=== PATIENT | female | born 1930 | race Caucasian/White ===

== ENCOUNTER → 2016-06-12 | Outpatient (CLI) | payer MEDICARE, OTHER ==
[2015-11-17 10:52] VITALS: BP 125/80
[~2016-06-12] MED LIST: ACET325T21 PO; ACET325T9 PO; ALPR0.254 PO; ASPI-482 PO; CALC1TAB75 PO; CHOL10007 PO; DILT120C2 PO; FLUT16SP2 NS; FURO-69 PO; GABA-586 PO; GUAI100L12 PO; HYDR-963 PO; IBUP200T5 PO; IPRA3AMP IH; LORA10TA65 PO; METO50TA2 PO; MULT-246 PO; MULT1TAB52 PO; NAPR250T2 PO; NYST30PO9 TP; POLY17PO5 PO; POTA10CA PO; POTA20TA12 PO; PRED5TAB PO; PROP10DR3 OP; TRAM50TA PO; WARF2TAB PO; WARF3TAB PO; XOPENEX HFA15 GM IH; ZOLP10TA PO; ZOLP5TAB PO; ZOLP6.252 PO
[2016-06-12 08:23] LABS: BASO % 0 % (0-3); EOS # 0.1 x10^3/uL (0.0-0.7); EOS % 0 % (0-3); HEMOGLOBIN 14.5 g/dL (12.0-15.5); LYMPH % 16 % (24-48); MEAN CORPUSCULAR HEMOGLOBIN 30 pg (25-35); MEAN CORPUSCULAR HGB CONC 32 g/dL (31-37); MEAN CORPUSCULAR VOLUME 92 fL (79-100); MONO # 0.8 x10^3/uL (0.0-1.1); MONO % 6 % (0-9); NEUT # 9.9 x10^3uL (1.8-7.7); NEUT % 78 % (31-73); PLATELET COUNT 214 x10^3/uL (140-400); RED BLOOD COUNT 4.89 x10^6/uL (3.50-5.40); RED CELL DISTRIBUTION WIDTH 16.6 % (11.5-14.5); WHITE BLOOD COUNT 12.7 x10^3/uL (4.0-11.0)
[2016-06-12 08:33] LABS: ALBUMIN 3.6 g/dL (3.4-5.0); ALBUMIN/GLOBULIN RATIO 1.2 (1.0-1.7); CALCIUM 8.6 mg/dL (8.5-10.1); GFR 52.7; POTASSIUM 4.8 mmol/L (3.5-5.1); TOTAL BILIRUBIN 0.5 mg/dL (0.2-1.0); TOTAL PROTEIN 6.6 g/dL (6.4-8.2)
== END | disposition home or self-care (01) ==
LOC: SPEC 07:43
PROVIDERS: ATTEND Family Medicine
DX: I10 Essential (primary) hypertension (principal); I48.91 Unspecified atrial fibrillation; J44.9 Chronic obstructive pulmonary disease, unspecified
CPT/HCPCS: 36415; 80053; 85027; 85610

== ENCOUNTER → 2016-06-17 | Outpatient (CLI) | payer MEDICARE, OTHER ==
[2015-11-17 10:52] VITALS: BP 125/80
== END | disposition home or self-care (01) ==
LOC: SPEC 09:56
PROVIDERS: ATTEND Family Medicine
DX: I48.91 Unspecified atrial fibrillation (principal)
CPT/HCPCS: 36415; 85610

== ENCOUNTER → 2016-06-21 | Outpatient (CLI) | payer MEDICARE, OTHER ==
[2015-11-17 10:52] VITALS: BP 125/80
== END | disposition home or self-care (01) ==
LOC: SPEC 07:47
PROVIDERS: ATTEND Family Medicine
DX: I48.91 Unspecified atrial fibrillation (principal); M31.6 Other giant cell arteritis
CPT/HCPCS: 36415; 85610; 85651

== ENCOUNTER → 2016-06-28 | Outpatient (CLI) | payer MEDICARE, OTHER ==
[2015-11-17 10:52] VITALS: BP 125/80
== END | disposition home or self-care (01) ==
LOC: SPEC 11:08
PROVIDERS: ATTEND Family Medicine
DX: Z79.01 Long term (current) use of anticoagulants (principal)
CPT/HCPCS: 36415; 85610

== ENCOUNTER → 2016-07-13 | Outpatient (CLI) | payer MEDICARE, OTHER ==
[2015-11-17 10:52] VITALS: BP 125/80
[2016-07-13 12:57] LABS: BASO % 0 % (0-3); EOS % 0 % (0-3); HEMOGLOBIN 14.1 g/dL (12.0-15.5); LYMPH # 0.8 x10^3/uL (1.0-4.8); LYMPH % 7 % (24-48); MEAN CORPUSCULAR HEMOGLOBIN 30 pg (25-35); MEAN CORPUSCULAR HGB CONC 31 g/dL (31-37); MEAN CORPUSCULAR VOLUME 94 fL (79-100); MONO # 0.3 x10^3/uL (0.0-1.1); MONO % 2 % (0-9); NEUT # 10.3 x10^3uL (1.8-7.7); NEUT % 91 % (31-73); PLATELET COUNT 217 x10^3/uL (140-400); RED BLOOD COUNT 4.79 x10^6/uL (3.50-5.40); RED CELL DISTRIBUTION WIDTH 17.2 % (11.5-14.5); WHITE BLOOD COUNT 11.4 x10^3/uL (4.0-11.0)
[2016-07-13 13:07] LABS: ALBUMIN 3.5 g/dL (3.4-5.0); ALBUMIN/GLOBULIN RATIO 1.2 (1.0-1.7); CALCIUM 8.6 mg/dL (8.5-10.1); POTASSIUM 4.9 mmol/L (3.5-5.1); TOTAL BILIRUBIN 0.6 mg/dL (0.2-1.0); TOTAL PROTEIN 6.4 g/dL (6.4-8.2)
[2016-07-13 13:10] LABS: GFR 52.7
[2016-07-13 13:55] LABS: SEDIMENTATION RATE 3 (0-25)
== END | disposition home or self-care (01) ==
LOC: SPEC 12:04
PROVIDERS: ATTEND Family Medicine
DX: I11.0 Hypertensive heart disease with heart failure (principal); I50.9 Heart failure, unspecified; N30.10 Interstitial cystitis (chronic) without hematuria
CPT/HCPCS: 36415; 80053; 85027; 85651

== ENCOUNTER → 2016-08-20 | Outpatient (CLI) | payer MEDICARE, OTHER ==
[2015-11-17 10:52] VITALS: BP 125/80
[~2016-08-20] MED LIST changes: +CHOL100014 PO; -CHOL10007 PO; +IBUP-1227 PO; -IBUP200T5 PO; +NYST15PO9 TP; -NYST30PO9 TP; -WARF3TAB PO; +WARF3TAB54 PO
[2016-08-20 13:42] LABS: BILIRUBIN,URINE NEG (NEG); CLARITY,URINE CLEAR; COLOR,URINE YELLOW; GLUCOSE,URINE NEG (NEG); NITRITE,URINE NEG (NEG); RBC,URINE RARE /HPF (0-2); UROBILINOGEN,URINE 0.2 mg/dL (0.2 mg/dL); WBC,URINE RARE /HPF (0-4)
[2016-08-20 13:43] LABS: BACTERIA,URINE 0 /HPF (0-FEW); HYALINE CASTS, URINE FEW /HPF; SQUAMOUS EPITHELIAL CELL,UR OCC /LPF
== END | disposition home or self-care (01) ==
LOC: SPEC 13:22
PROVIDERS: ATTEND Family Medicine
DX: N39.0 Urinary tract infection, site not specified (principal)
CPT/HCPCS: 81001

== ENCOUNTER → 2016-09-07 | Outpatient (CLI) | payer MEDICARE, OTHER ==
[2015-11-17 10:52] VITALS: BP 125/80
== END | disposition home or self-care (01) ==
LOC: SPEC 10:08
PROVIDERS: ATTEND Nurse Practitioner Family
DX: I48.91 Unspecified atrial fibrillation (principal)
CPT/HCPCS: 36415; 85610

== ENCOUNTER → 2016-09-16 | Outpatient (CLI) | payer MEDICARE, OTHER ==
[2015-11-17 10:52] VITALS: BP 125/80
[2016-09-16 10:31] LABS: CALCIUM 8.2 mg/dL (8.5-10.1); CREATININE 0.9 mg/dL (0.6-1.0); GFR 59.5; POTASSIUM 4.5 mmol/L (3.5-5.1)
== END | disposition home or self-care (01) ==
LOC: SPEC 10:05
PROVIDERS: ATTEND Internal Medicine
DX: I50.9 Heart failure, unspecified (principal)
CPT/HCPCS: 36415; 80048; 83880

== ENCOUNTER 2016-09-20 12:48 | Inpatient (IN) | payer MEDICARE, OTHER ==
[~2016-09-20] VITALS: Ht 165.1 cm; Wt 105.2 kg
[2016-09-20 13:34] VITALS: BP 115/75
[2016-09-20] MEDS ORDERED: FUROSEMIDE 40 MG/4 ML VIAL IVP ONE (13:45)
[2016-09-20 14:41] LABS: BASO % 0 % (0-3); EOS % 1 % (0-3); HEMATOCRIT 33.4 % (36.0-47.0); HEMOGLOBIN 10.7 g/dL (12.0-15.5); LYMPH # 0.7 x10^3/uL (1.0-4.8); LYMPH % 10 % (24-48); MEAN CORPUSCULAR HEMOGLOBIN 29 pg (25-35); MEAN CORPUSCULAR HGB CONC 32 g/dL (31-37); MEAN CORPUSCULAR VOLUME 90 fL (79-100); MONO # 0.6 x10^3/uL (0.0-1.1); MONO % 9 % (0-9); NEUT # 5.6 x10^3uL (1.8-7.7); NEUT % 80 % (31-73); PLATELET COUNT 178 x10^3/uL (140-400); RED CELL DISTRIBUTION WIDTH 14.6 % (11.5-14.5)
--- NOTE | 2016-09-20 14:44 | RAD ---
Indication: Congestive heart failure. Time of exam 1430 hours. Correlation is made with prior exam from 11/17/2015. The heart is enlarged. There is no evidence of infiltrate or congestive failure. No significant effusion is seen. There is no pneumothorax identified. Impression: Cardiomegaly. There are no findings to suggest overt congestive failure.
[2016-09-20 14:49] VITALS: BP 114/55
[2016-09-20 14:55] LABS: ALBUMIN 3.3 g/dL (3.4-5.0); ALBUMIN/GLOBULIN RATIO 1.1 (1.0-1.7); CALCIUM 8.4 mg/dL (8.5-10.1); CREATININE 0.9 mg/dL (0.6-1.0); GFR 59.5; MAGNESIUM 2.1 mg/dL (1.8-2.4); POTASSIUM 3.9 mmol/L (3.5-5.1); TOTAL BILIRUBIN 0.6 mg/dL (0.2-1.0); TOTAL PROTEIN 6.4 g/dL (6.4-8.2)
[2016-09-20] MEDS ORDERED: ZOLP10TA4 PO (14:58)
[2016-09-20] MEDS ORDERED: POTA20TA82 PO (14:58)
[2016-09-20] MEDS ORDERED: WARF2.5T71 PO (14:58)
[2016-09-20 15:15] VITALS: BP 114/55
--- NOTE | 2016-09-20 17:27 | EKG ---
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
[2016-09-20] MEDS ORDERED: FURO80TA3 PO (18:08)
[2016-09-20] MEDS ORDERED: PSYL3.4P PO (18:17)
[2016-09-20 18:48] VITALS: BP 105/74
[2016-09-20] MEDS ORDERED: ACETAMINOPHEN 325 MG TABLET PO PRN (19:00)
[2016-09-20] MEDS ORDERED: POLYETHYLENE GLYCOL 3350 17 GM PACKET. PO PRN (19:00)
[2016-09-20] MEDS ORDERED: ZOLPIDEM 5 MG TABLET. PO PRN (20:00)
[2016-09-20] MEDS: METOPROLOL TART IMMED RELEASE 50 MG TABLET PO SCH (20:31)
[2016-09-20] MEDS: ZOLPIDEM 5 MG TABLET. PO SCH (20:32)
[2016-09-20] MEDS: GABAPENTIN 300 MG CAPSULE. PO SCH (20:32)
[2016-09-20] MEDS: HYDROcodone/APAP 10/325 1 TAB TABLET PO PRN (20:34)
[2016-09-20] MEDS: POLYVINYL ALCOHOL 1.4% OPHTH SOLUTION 15ML BOTTLE. OU SCH (21:00)
[2016-09-20 21:58] VITALS: BP 130/71
[2016-09-21 02:16] LABS: CALCIUM 8.2 mg/dL (8.5-10.1); CREATININE 0.7 mg/dL (0.6-1.0); GFR 79.5; POTASSIUM 3.3 mmol/L (3.5-5.1)
[2016-09-21 02:20] LABS: BASO # 0.1 x10^3/uL (0.0-0.2); BASO % 1 % (0-3); EOS # 0.2 x10^3/uL (0.0-0.7); EOS % 3 % (0-3); HEMOGLOBIN 10.9 g/dL (12.0-15.5); LYMPH % 26 % (24-48); MEAN CORPUSCULAR HEMOGLOBIN 29 pg (25-35); MEAN CORPUSCULAR HGB CONC 32 g/dL (31-37); MEAN CORPUSCULAR VOLUME 90 fL (79-100); MONO # 0.9 x10^3/uL (0.0-1.1); MONO % 12 % (0-9); NEUT # 4.4 x10^3uL (1.8-7.7); NEUT % 58 % (31-73); PLATELET COUNT 175 x10^3/uL (140-400); RED BLOOD COUNT 3.78 x10^6/uL (3.50-5.40); RED CELL DISTRIBUTION WIDTH 14.9 % (11.5-14.5); WHITE BLOOD COUNT 7.6 x10^3/uL (4.0-11.0)
[2016-09-21] MEDS: POTASSIUM CHLORIDE 20 MEQ TABLET.ER. PO SCH ×2 (06:13→17:12)
[2016-09-21] MEDS: HYDROcodone/APAP 10/325 1 TAB TABLET PO PRN ×2 (06:25→21:03)
[2016-09-21 06:30] VITALS: BP 134/54
[2016-09-21] MEDS ORDERED: POTASSIUM CHLORIDE 20 MEQ TABLET.ER. PO SCH (08:00)
[2016-09-21] MEDS ORDERED: PSYLLIUM SEED (WITH SUGAR) PACKET. PO PRN (09:00)
[2016-09-21] MEDS ORDERED: ASPIRIN ENTERIC COATED 81 MG TABLET.DR. PO SCH (09:00)
--- NOTE | 2016-09-21 09:47 | PDOC2 ---
[facility] 09/21/16 0947: CONSULT Date of Admission DATE: 09/21/16 TIME: 09:40 Reason for Consult: Acute diastolic heart failure History of Present Illness This is a pleasant 86-year-old female who presented to our office yesterday with chief complaint of progressive dyspnea. She has a past medical history of heart failure with preserved ejection fraction,chronic atrial fibrillation, essential hypertension, and chronic lymphedema. She has been following with Dr. Valerio as an outpatient. Yesterday she had come in for 1 week follow-up to assess her congestive heart failure and reported to be progressively short of breath and more swollen. She was positive for PND and orthopnea for Dr. Valerio asked her to be admitted for IV Lasix. She was given Lasix yesterday and this morning and her breathing is already feeling much better. She has not been able to get up and do much walking at this point because her legs ache whenever she is trying to stand on them. She used to have fitted lymphedema wraps that she has outgrown and not been able to use. She denies any chest pain, pressure or tightness. She denies any palpitations, lightheadedness or syncope. PAST MEDICAL HISTORY: Positive for atrial fibrillation, congestive heart failure, edema. Varicose veins, back pain, sleep apnea. She wears a CPAP. PAST SURGICAL HISTORY: Partial removal of collar bone, surgery 4 times to repair shoulder surgery, procedure breast biopsy, 3 times, back surgery, knee surgery, bilateral. ALLERGIES: LATEX AND PLAVIX. MEDICATIONS: Prednisone 5 mg daily, Lasix 40 mg daily, multivitamin one tablet daily, Zyrtec 10 mg daily, potassium 10 mEq daily, Cardizem 120 daily, aspirin 81 mg daily, Ambien 5 mg at bedtime as needed, metoprolol tartrate 50 mg b.i.d., Neurontin 300 mg at bedtime, warfarin sliding scale. FAMILY HISTORY: Father had chronic obstructive pulmonary disease and at age 87. Brother, family history of cancer, at age 47. 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 She is a former smoker. She has moderate caffeine intake with no alcohol or drug intake. REVIEW OF SYSTEMS: Review of ten organ systems is negative except for as above. PHYSICAL EXAMINATION: GENERAL APPEARANCE: This is a well-developed white female, in no apparent distress. SKIN: Warm and dry. Normal skin turgor. No lesions, no rash. Negative for pallor. HEENT: Conjunctivae are clear. No xanthelasma. HEAD AND NECK: Supple. Positive JVD. No hepatojugular reflex. Negative for carotid bruit. CARDIOVASCULAR: Rhythm and rate were irregular. Normal S1, S2. No S3, S4. Positive systolic murmur. LUNGS: Clear to auscultation. ABDOMEN: Soft, nontender. Positive bowel sounds. EXTREMITIES: + pitting edema. Palpable pedal pulses. MUSCULOSKELETAL: No kyphosis, scoliosis, negative for localized tenderness and stiffness. NEUROLOGIC: Cranial nerves 2-12 are grossly intact.Alert and oriented x 3 PSYCHIATRIC: This is a pleasant patient with a normal affect. EKG shows atrial fibrillation. Chest x-ray shows no obvious vascular congestion. IMPRESSION AND PLAN: 1. Acute decompensation of preserved ejection fraction, congestive heart failure. Continue IV Lasix and follow labs and x-ray. 2. Chronic atrial fibrillation on anticoagulation with an INR goal of 2-3. Check INR Continue metoprolol and diltiazem for rate control. Stop aspirin - she does not need with warfarin 3. Hypertension, well controlled. Continue current medication. 4. Lymphedema. See if we can get her some SCDs - this may help improve her swelling. Current Medications Current Medications Furosemide (Lasix) 80 mg 1X ONCE IVP Last administered on 09/20/16 16:00; Start 09/20/16 at 13:45; Stop 09/20/16 at 13:46; Status DC Acetaminophen (Tylenol) 650 mg PRN Q6HRS PRN PO PAIN; Start 09/20/16 at 19:00 Aspirin (Aspirin Enteric Coated) 81 mg DAILY PO ; Start 09/21/16 at 09:00 Diltiazem HCl (Cardizem 24hr Cd) 120 mg DAILY PO ; Start 09/21/16 at 09:00 Gabapentin (Neurontin) 300 mg HS PO Last administered on 09/20/16 20:32; Start 09/20/16 at 21:00 Acetaminophen/ Hydrocodone Bitart (Lortab 10/325) 2 tab PRN Q8HRS PRN PO PAIN Last administered on 09/21/16 06:25; Start 09/20/16 at 19:00 Metoprolol Tartrate (Lopressor) 50 mg BID PO ; Start 09/20/16 at 21:00 Polyethylene Glycol (miraLAX) 17 gm PRN DAILY PRN PO CONSTIPATION; Start at 19:00 Prednisone (Prednisone) 10 mg DAILY PO ; Start 09/21/16 at 09:00 Warfarin Sodium (Coumadin) 2.5 mg DAILY16 PO ; Start 09/21/16 at 16:00 Zolpidem Tartrate (Ambien) 5 mg HS PO Last administered on 09/20/16t 20:32; Start 09/20/16 at 21:00 Cetirizine HCl (ZyrTEC) 10 mg DAILY PO ; Start 09/21/16 at 09:00 Multivitamins/ Calcium (Thera-M Plus) 1 tab DAILY PO ; Start 09/21/16 at 09:00 Potassium Chloride (Klor-Con) 20 meq DAILYWBKFT PO ; Start 09/21/16 at 08:00; Stop 09/21/16 at 08:00; Status DC Artificial Tears (Artificial Tears) 1 drop BID OU ; Start 09/20/16 at 21:00 Psyllium Hydrophilic Mucilloid (Metamucil) 1 pkt PRN DAILY PRN PO CONSTIPATION ; Start 09/21/16 at 09:00 Furosemide (Lasix) 80 mg DAILY IVP ; Start 09/21/16 at 09:00 Zolpidem Tartrate (Ambien) 5 mg PRN QHS PRN PO INSOMNIA; Start 09/20/16 at 20: 00 Warfarin Sodium (Coumadin Per Physician) 1 each PRN DAILY PRN MC SEE COMMENTS; Start 09/20/16 at 20:00 Potassium Chloride (Klor-Con) 40 meq BID66 PO Last administered on 09/21/16t 06 :13; Start 09/21/16 at 06:00 Active Scripts Active Reported Metamucil Fiber Singles Packet (Psyllium Husk/Aspartame) 3.4 Gm Powd.pack 3.4 Gm PO PRN DAILY Furosemide 80 Mg Tablet 1 Tab PO DAILY Potassium Chloride 20 Meq Tablet.er 20 Meq PO DAILY Zolpidem Tartrate 10 Mg Tablet 1 Tab PO QHS Warfarin Sodium 2.5 Mg Tablet 2.5 Mg PO DAILY Miralax (Polyethylene Glycol 3350) 17 Gm Powd.pack 1 Packet PO DAILY PRN LAST DOSE GIVEN: DATE: TIME: NEXT DOSE DUE: DATE: TIME: Tylenol (Acetaminophen) 325 Mg Tablet 2 Tab PO PRN Q6HRS PRN MDD 3000mg LAST DOSE GIVEN: DATE: TIME: NEXT DOSE DUE: DATE: TIME: Multivitamins (Multivitamin) 1 Each Tablet 1 Tab PO DAILY LAST DOSE GIVEN: DATE: TIME: NEXT DOSE DUE: DATE: TIME: [place] 10-325 Tablet (Hydrocodone Bit/Acetaminophen) 1 Each Tablet 2 Tab PO Q8HRS PRN LAST DOSE GIVEN: DATE: TIME: NEXT DOSE DUE: DATE: TIME: Systane Ultra 0.4-0.3% Eye Drp (Propylene Glycol/Peg 400) 10 Ml Drops 1 Ml OP BID LAST DOSE GIVEN: DATE: TIME: NEXT DOSE DUE: DATE: TIME: Aspir 81 (Aspirin) 81 Mg Tablet.dr 81 Mg PO DAILY LAST DOSE GIVEN: DATE: TIME: NEXT DOSE DUE: DATE: TIME: Prednisone 5 Mg Tablet 10 Mg PO DAILY LAST DOSE GIVEN: DATE: TIME: NEXT DOSE DUE: DATE: TIME: Metoprolol Tartrate 50 Mg Tablet 50 Mg PO BID LAST DOSE GIVEN: DATE: TIME: NEXT DOSE DUE: DATE: TIME: Claritin (Loratadine) 10 Mg Tab.rapdis 10 Mg PO DAILY LAST DOSE GIVEN: DATE: TIME: NEXT DOSE DUE: DATE: TIME: Gabapentin 300 Mg Capsule 300 Mg PO HS LAST DOSE GIVEN: DATE: TIME: NEXT DOSE DUE: DATE: TIME: Cardizem Cd (Diltiazem Hcl) 120 Mg Cap.er.24h 120 Mg PO DAILY LAST DOSE GIVEN: DATE: TIME: NEXT DOSE DUE: DATE: TIME: Allergies: Coded Allergies: latex (Unverified Allergy, Intermediate, ANAPHYLATIC, 09/29/13) clopidogrel (Unverified Allergy, Mild, Rash, 09/29/13) VITALS Vital Signs Date Time Temp Pulse Resp B/P (MAP) Pulse Ox O2 Delivery O2 Flow Rate FiO2 09/21/16 06:30 98.0 84 20 134/54 (80) 95 Nasal Cannula 2.0 Labs Laboratory Tests Test 09/20/16 14:25 09/20/16 20:15 09/21/16 01:55 White Blood Count 7.0 x10^3/uL (4.0-11.0) 7.6 x10^3/uL (4.0-11.0) Red Blood Count 3.70 x10^6/uL (3.50-5.40) 3.78 x10^6/uL (3.50-5.40) Hemoglobin 10.7 g/dL (12.0-15.5) 10.9 g/dL (12.0-15.5) Hematocrit 33.4 % (36.0-47.0) 34.0 % (36.0-47.0) Mean Corpuscular Volume 90 fL (79-100) 90 fL (79-100) Mean Corpuscular Hemoglobin 29 pg (25-35) 29 pg (25-35) Mean Corpuscular Hemoglobin Concent 32 g/dL (31-37) 32 g/dL (31-37) Red Cell Distribution Width 14.6 % (11.5-14.5) 14.9 % (11.5-14.5) Platelet Count 178 x10^3/uL (140-400) 175 x10^3/uL (140-400) Neutrophils (%) (Auto) 80 % (31-73) 58 % (31-73) Lymphocytes (%) (Auto) 10 % (24-48) 26 % (24-48) Monocytes (%) (Auto) 9 % (0-9) 12 % (0-9) Eosinophils (%) (Auto) 1 % (0-3) 3 % (0-3) Basophils (%) (Auto) 0 % (0-3) 1 % (0-3) Neutrophils # (Auto) 5.6 x10^3uL (1.8-7.7) 4.4 x10^3uL (1.8-7.7) Lymphocytes # (Auto) 0.7 x10^3/uL (1.0-4.8) 2.0 x10^3/uL (1.0-4.8) Monocytes # (Auto) 0.6 x10^3/uL (0.0-1.1) 0.9 x10^3/uL (0.0-1.1) Eosinophils # (Auto) 0.0 x10^3/uL (0.0-0.7) 0.2 x10^3/uL (0.0-0.7) Basophils # (Auto) 0.0 x10^3/uL (0.0-0.2) 0.1 x10^3/uL (0.0-0.2) Sodium Level 143 mmol/L (136-145) 144 mmol/L (136-145) Potassium Level 3.9 mmol/L (3.5-5.1) 3.3 mmol/L (3.5-5.1) Chloride Level 100 mmol/L (98-107) 100 mmol/L (98-107) Carbon Dioxide Level 45 mmol/L (21-32) 43 mmol/L (21-32) Anion Gap -2 (6-14) 1 (6-14) Blood Urea Nitrogen 18 mg/dL (7-20) 18 mg/dL (7-20) Creatinine 0.9 mg/dL (0.6-1.0) 0.7 mg/dL (0.6-1.0) Estimated GFR (Cockcroft-Gault) 59.5 79.5 BUN/Creatinine Ratio 20 (6-20) Glucose Level 160 mg/dL (70-99) 91 mg/dL (70-99) Calcium Level 8.4 mg/dL (8.5-10.1) 8.2 mg/dL (8.5-10.1) Magnesium Level 2.1 mg/dL (1.8-2.4) 2.1 mg/dL (1.8-2.4) Total Bilirubin 0.6 mg/dL (0.2-1.0) Aspartate Amino Transf (AST/SGOT) 14 U/L (15-37) Alanine Aminotransferase (ALT/SGPT) 14 U/L (14-59) Alkaline Phosphatase 57 U/L (46-116) Troponin I Quantitative < 0.017 ng/mL (0-0.055) < 0.017 ng/mL (0-0.055) < 0.017 ng/mL (0-0.055) EW-Iya-A-Type Natriuretic Peptide 2479 pg/mL (0-449) Total Protein 6.4 g/dL (6.4-8.2) Albumin 3.3 g/dL (3.4-5.0) Albumin/Globulin Ratio 1.1 (1.0-1.7) JEREMIE HORTON Jr, MD 09/22/16 0626: CONSULT Allergies: Coded Allergies: latex (Unverified Allergy, Intermediate, ANAPHYLATIC, 09/29/13) clopidogrel (Unverified Allergy, Mild, Rash, 09/29/13) Assessment/Plan The patient was seen by Kiera Campbell APRN and I have reviewed her findings and plan and agree with above. Due to staffing constraints, we did not have an attending available on this day to see the patient. Problems: KIERA CAMPBELL APRN Sep 21, 2016 09:47 JEREMIE HORTON Jr, MD Sep 22, 2016 06:26
[2016-09-21] MEDS: POLYVINYL ALCOHOL 1.4% OPHTH SOLUTION 15ML BOTTLE. OU SCH ×2 (10:01→21:02)
[2016-09-21] MEDS: FUROSEMIDE 100 MG/10 ML VIAL IVP SCH (10:01)
[2016-09-21] MEDS: predniSONE 10 MG TABLET PO SCH (10:04)
[2016-09-21] MEDS: METOPROLOL TART IMMED RELEASE 50 MG TABLET PO SCH ×2 (10:04→21:02)
[2016-09-21] MEDS: MULTIVITAMIN with MINERAL TABLET. PO SCH (10:05)
[2016-09-21] MEDS: CETIRIZINE HCL 10 MG TABLET PO SCH (10:07)
[2016-09-21 10:31] VITALS: BP 109/64
[2016-09-21 14:47] VITALS: BP 138/71
[2016-09-21] MEDS: WARFARIN 2.5 MG TABLET. PO SCH (17:12)
[2016-09-21 20:05] VITALS: BP 131/74
[2016-09-21] MEDS: GABAPENTIN 300 MG CAPSULE. PO SCH (21:03)
[2016-09-21] MEDS: ZOLPIDEM 5 MG TABLET. PO SCH (21:03)
[2016-09-22 00:15] VITALS: BP 122/74
[2016-09-22] MEDS: HYDROcodone/APAP 10/325 1 TAB TABLET PO PRN ×2 (05:37→16:41)
[2016-09-22] MEDS: POTASSIUM CHLORIDE 20 MEQ TABLET.ER. PO SCH ×2 (05:37→16:41)
[2016-09-22 06:16] VITALS: BP 121/62
[2016-09-22] MEDS: predniSONE 10 MG TABLET PO SCH (08:41)
[2016-09-22] MEDS: CETIRIZINE HCL 10 MG TABLET PO SCH (08:41)
[2016-09-22] MEDS: MULTIVITAMIN with MINERAL TABLET. PO SCH (08:41)
[2016-09-22] MEDS: METOPROLOL TART IMMED RELEASE 50 MG TABLET PO SCH ×2 (08:41→21:30)
[2016-09-22] MEDS: FUROSEMIDE 100 MG/10 ML VIAL IVP SCH (08:41)
[2016-09-22 08:42] LABS: BASO % 1 % (0-3); EOS # 0.2 x10^3/uL (0.0-0.7); EOS % 3 % (0-3); HEMATOCRIT 35.2 % (36.0-47.0); HEMOGLOBIN 11.2 g/dL (12.0-15.5); LYMPH # 1.6 x10^3/uL (1.0-4.8); LYMPH % 23 % (24-48); MEAN CORPUSCULAR HEMOGLOBIN 29 pg (25-35); MEAN CORPUSCULAR HGB CONC 32 g/dL (31-37); MEAN CORPUSCULAR VOLUME 89 fL (79-100); MONO # 0.9 x10^3/uL (0.0-1.1); MONO % 14 % (0-9); NEUT # 3.9 x10^3uL (1.8-7.7); NEUT % 59 % (31-73); PLATELET COUNT 187 x10^3/uL (140-400); RED BLOOD COUNT 3.94 x10^6/uL (3.50-5.40); RED CELL DISTRIBUTION WIDTH 14.7 % (11.5-14.5); WHITE BLOOD COUNT 6.6 x10^3/uL (4.0-11.0)
[2016-09-22] MEDS: POLYVINYL ALCOHOL 1.4% OPHTH SOLUTION 15ML BOTTLE. OU SCH ×2 (08:42→21:28)
[2016-09-22 08:50] LABS: ALBUMIN 3.1 g/dL (3.4-5.0); ALBUMIN/GLOBULIN RATIO 0.9 (1.0-1.7); CALCIUM 8.5 mg/dL (8.5-10.1); CREATININE 0.8 mg/dL (0.6-1.0); GFR 68.2; MAGNESIUM 2.1 mg/dL (1.8-2.4); POTASSIUM 4.2 mmol/L (3.5-5.1); TOTAL BILIRUBIN 0.6 mg/dL (0.2-1.0); TOTAL PROTEIN 6.4 g/dL (6.4-8.2)
--- NOTE | 2016-09-22 09:41 | PDOC ---
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 She reports that her breathing is significantly better than on admission, and continues to notice a decrease in her peripheral edema. She denies any chest pain, palpitations, or lightheadedness. She has no other particular complaints this morning. Exam Constitutional: Denies fever or chills Eyes: Denies change in visual acuity HENT: Denies nasal congestion or sore throat Respiratory: Denies cough or shortness of breath Cardiovascular: Denies chest pain or edema GI: Denies abdominal pain, nausea, vomiting, bloody stools or diarrhea : Denies dysuria Musculoskeletal: Denies back pain or joint pain Integument: Denies rash Neurologic: Denies headache, focal weakness or sensory changes Endocrine: Denies polyuria or polydipsia Lymphatic: Denies swollen glands Psychiatric: Denies depression or anxiety OBJECTIVE Vital Signs Vital Signs Date Time Temp Pulse Resp B/P (MAP) Pulse Ox O2 Delivery O2 Flow Rate FiO2 09/22/16 08:42 78 121/62 09/22/16 06:37 95 Nasal Cannula 2.0 09/22/16 06:16 98.3 18 Physical Exam Constitutional: Well developed, well nourished, no acute distress, non-toxic appearance. HENT: Normocephalic, atraumatic, bilateral external ears normal, oropharynx moist, no oral exudates, nose normal. Eyes: GE, EOMI, conjunctiva normal, no discharge. Neck: Normal range of motion, no tenderness, supple, no stridor. Cardiovascular: No carotid bruit. Nor precordial pulsations or heaves. Irregularly irregular, variable S1. No murmurs. No rubs or clicks. Thorax and Lungs: Normal respiration. Normal chest expansion. Normal to percuss. Equal breath sounds. No crackles. No wheeze. Abdomen: Bowel sounds normal, soft, no tenderness, no masses, no pulsatile masses. Skin: Warm, dry, no erythema, no rash. Back: No tenderness, no CVA tenderness. Extremities: Intact distal pulses, +1 pitting edema bilaterally (improving). Neurologic: Alert and oriented X 3, normal motor function, normal sensory function, no focal deficits noted. Psychologic: Affect normal, judgement normal, mood normal. Lab Laboratory Tests Test 09/21/16 11:37 09/22/16 08:26 Glucose (Fingerstick) 112 mg/dL (70-99) H White Blood Count 6.6 x10^3/uL (4.0-11.0) Red Blood Count 3.94 x10^6/uL (3.50-5.40) Hemoglobin 11.2 g/dL (12.0-15.5) L Hematocrit 35.2 % (36.0-47.0) L Mean Corpuscular Volume 89 fL (79-100) Mean Corpuscular Hemoglobin 29 pg (25-35) Mean Corpuscular Hemoglobin Concent 32 g/dL (31-37) Red Cell Distribution Width 14.7 % (11.5-14.5) H Platelet Count 187 x10^3/uL (140-400) Neutrophils (%) (Auto) 59 % (31-73) Lymphocytes (%) (Auto) 23 % (24-48) L Monocytes (%) (Auto) 14 % (0-9) H Eosinophils (%) (Auto) 3 % (0-3) Basophils (%) (Auto) 1 % (0-3) Neutrophils # (Auto) 3.9 x10^3uL (1.8-7.7) Lymphocytes # (Auto) 1.6 x10^3/uL (1.0-4.8) Monocytes # (Auto) 0.9 x10^3/uL (0.0-1.1) Eosinophils # (Auto) 0.2 x10^3/uL (0.0-0.7) Basophils # (Auto) 0.0 x10^3/uL (0.0-0.2) Prothrombin Time 23.5 SEC (9.4-11.4) H Prothrombin Time INR 2.3 (0.9-1.1) H Sodium Level 142 mmol/L (136-145) Potassium Level 4.2 mmol/L (3.5-5.1) Chloride Level 101 mmol/L (98-107) Carbon Dioxide Level 41 mmol/L (21-32) H Anion Gap 0 (6-14) L Blood Urea Nitrogen 17 mg/dL (7-20) Creatinine 0.8 mg/dL (0.6-1.0) Estimated GFR (Cockcroft-Gault) 68.2 BUN/Creatinine Ratio 21 (6-20) H Glucose Level 104 mg/dL (70-99) H Calcium Level 8.5 mg/dL (8.5-10.1) Magnesium Level 2.1 mg/dL (1.8-2.4) Total Bilirubin 0.6 mg/dL (0.2-1.0) Aspartate Amino Transferase (AST) 15 U/L (15-37) Alanine Aminotransferase (ALT) 14 U/L (14-59) Alkaline Phosphatase 54 U/L (46-116) Total Protein 6.4 g/dL (6.4-8.2) Albumin 3.1 g/dL (3.4-5.0) L Albumin/Globulin Ratio 0.9 (1.0-1.7) L MEDICATIONS Medications Current Medications Medications (Trade) Dose Ordered Sig/Nora Start Time Stop Time Status Last Admin Dose Admin Acetaminophen (Tylenol) 650 mg PRN Q6HRS PRN 09/20/16 19:00 Acetaminophen/ Hydrocodone Bitart (Lortab 10/325) 2 tab PRN Q8HRS PRN 09/20/16 19:00 09/22/16 05:37 2 TAB Artificial Tears (Artificial Tears) 1 drop BID 09/20/16 21:00 09/22/16 08:42 1 DROP Aspirin (Aspirin Enteric Coated) 81 mg DAILY 09/21/16 09:00 09/21/16 09:48 DC Cetirizine HCl (ZyrTEC) 10 mg DAILY 09/21/16 09:00 09/22/16 08:41 10 MG Diltiazem HCl (Cardizem 24hr Cd) 120 mg DAILY 09/21/16 09:00 09/22/16 08:42 120 MG Furosemide (Lasix) 80 mg DAILY 09/21/16 09:00 09/22/16 08:41 80 MG Gabapentin (Neurontin) 300 mg HS 09/20/16 21:00 09/21/16 21:03 300 MG Metoprolol Tartrate (Lopressor) 50 mg BID 09/20/16 21:00 09/22/16 08:41 50 MG Multivitamins/ Calcium (Thera-M Plus) 1 tab DAILY 09/21/16 09:00 09/22/16 08:41 1 TAB Polyethylene Glycol (miraLAX) 17 gm PRN DAILY PRN 09/20/16 19:00 Potassium Chloride (Klor-Con) 40 meq BID66 09/21/16 06:00 09/22/16 05:37 40 MEQ Prednisone (Prednisone) 10 mg DAILY 09/21/16 09:00 09/22/16 08:41 10 MG Psyllium Hydrophilic Mucilloid (Metamucil) 1 pkt PRN DAILY PRN 09/21/16 09:00 Warfarin Sodium (Coumadin Per Physician) 1 each PRN DAILY PRN 09/20/16 20:00 Warfarin Sodium (Coumadin) 2.5 mg DAILY16 09/21/16 16:00 09/21/16 17:12 2.5 MG Zolpidem Tartrate (Ambien) 5 mg PRN QHS PRN 09/20/16 20:00 PLAN Plan 1. Acute CHF, diastolic, improving 2. HFpEF 3. Permanent atrial fibrillation, rate controlled and on chronic anticoagulation with warfarin 4. Essential hypertension 5. Lymphedema Sister Jay is doing well this morning. She reports that her breathing continues to improve, and her peripheral edema is down significantly. I note that the patient is down a net of 1.5 L since admission, and her weight is down about 3 pounds. She has not had any recent anginal symptoms, and has remained hemodynamically stable since admission. I agree with continued IV diuresis with Lasix 80 mg for now. This may be transitioned to an oral regimen in the coming days once patient becomes more euvolemic. I agree with continuing the rest of her cardiovascular regimen. Once again, I discussed the importance of salt restriction with the patient. Please continue to follow renal function and electrolytes closely with IV diuresis. We will continue to follow along. Please call with any further questions. NASRIN HERNANDEZ MD Sep 22, 2016 09:41
[2016-09-22 10:27] VITALS: BP 109/63
--- NOTE | 2016-09-22 13:53 | PDOC ---
PROVIDER NOTE PROVIDER NOTE PROVIDER NOTE This is a progress note on Nichole Thompson. Date seen 09/22/2016 Is a 86-year-old pleasant But none with the problem with the following problems #1 acute on chronic diastolic heart failure # 2 HFpEF #3 permanent atrial fibrillation 4 hypertension #5 chronic lymphedema #6 morbid obesity 7 normochromic normocytic anemia #8 impaired mobility line #9 fall risk #10 long-term use of anticoagulants- therapeutic #11 obstructive sleep apnea on CPAP S: Doing much better. Has lost three pounds. Still on IV Lasix. Has been seen by cardiology. Will continue the Lasix IV for another day or so. O:VSS Weight down 3 pounds Alert and in good spirits, LUngs Clear, no JVD, Cy irregular rhytm and rate Extremities_ 1-2 + edema-decreased Labs reviewed-maintaining potassium and mag, INR therapeutic A: see above Plan: continue IV Lasix, daily weights, sodium restriction. USHA LOZANO DO Sep 22, 2016 13:53
[2016-09-22 15:02] VITALS: BP 132/60
[2016-09-22] MEDS: WARFARIN 2.5 MG TABLET. PO SCH (16:41)
[2016-09-22 18:59] VITALS: BP 101/60
[2016-09-22] MEDS: ZOLPIDEM 5 MG TABLET. PO SCH (21:29)
[2016-09-22] MEDS: GABAPENTIN 300 MG CAPSULE. PO SCH (21:30)
[2016-09-22 22:40] VITALS: BP 148/72
[2016-09-23 05:43] VITALS: BP 107/60
[2016-09-23] MEDS: POTASSIUM CHLORIDE 20 MEQ TABLET.ER. PO SCH ×2 (05:43→18:00)
[2016-09-23] MEDS: HYDROcodone/APAP 10/325 1 TAB TABLET PO PRN ×3 (05:48→21:30)
[2016-09-23 06:31] LABS: BASO # 0.1 x10^3/uL (0.0-0.2); BASO % 1 % (0-3); EOS # 0.2 x10^3/uL (0.0-0.7); EOS % 3 % (0-3); HEMATOCRIT 35.2 % (36.0-47.0); HEMOGLOBIN 11.3 g/dL (12.0-15.5); LYMPH % 25 % (24-48); MEAN CORPUSCULAR HEMOGLOBIN 29 pg (25-35); MEAN CORPUSCULAR HGB CONC 32 g/dL (31-37); MEAN CORPUSCULAR VOLUME 90 fL (79-100); MONO # 0.9 x10^3/uL (0.0-1.1); MONO % 12 % (0-9); NEUT # 4.6 x10^3uL (1.8-7.7); NEUT % 60 % (31-73); PLATELET COUNT 187 x10^3/uL (140-400); RED BLOOD COUNT 3.94 x10^6/uL (3.50-5.40); RED CELL DISTRIBUTION WIDTH 14.8 % (11.5-14.5); WHITE BLOOD COUNT 7.7 x10^3/uL (4.0-11.0)
[2016-09-23 06:38] LABS: ALBUMIN 3.1 g/dL (3.4-5.0); CALCIUM 8.5 mg/dL (8.5-10.1); CREATININE 0.7 mg/dL (0.6-1.0); GFR 79.5; MAGNESIUM 2.2 mg/dL (1.8-2.4); POTASSIUM 3.9 mmol/L (3.5-5.1); TOTAL BILIRUBIN 0.5 mg/dL (0.2-1.0); TOTAL PROTEIN 6.3 g/dL (6.4-8.2)
[2016-09-23] MEDS: predniSONE 10 MG TABLET PO SCH (08:20)
[2016-09-23] MEDS: MULTIVITAMIN with MINERAL TABLET. PO SCH (08:20)
[2016-09-23] MEDS: CETIRIZINE HCL 10 MG TABLET PO SCH (08:20)
[2016-09-23] MEDS: METOPROLOL TART IMMED RELEASE 50 MG TABLET PO SCH ×2 (08:21→20:24)
[2016-09-23] MEDS: POLYVINYL ALCOHOL 1.4% OPHTH SOLUTION 15ML BOTTLE. OU SCH ×2 (08:22→20:25)
[2016-09-23] MEDS: FUROSEMIDE 100 MG/10 ML VIAL IVP SCH (08:23)
[2016-09-23 10:45] VITALS: BP 111/66
--- NOTE | 2016-09-23 13:04 | PDOC ---
PROGRESS NOTES Diagnosis ELAINE #1 acute on chronic diastolic heart failure #2 HFpEF 3 pulmonary hypertension #4 permanent atrial fibrillation #5 chronic lymphedema #6 morbid obesity #7 normochromic normocytic anemia #8 impaired mobility #9 for risk #10 long-term use of anticoagulants therapeutic INR Over 11 obstructive sleep apnea on CPAP PLAN We'll switch to by mouth Lasix tomorrow. We will plan for discharge on Sunday back to [facility] after she is seen by the wire weaver cloth. Go back on skilled services. Strongly has been advised by the wire weaver cloth and myself against salt intake. Continue PT and OT. Subjective Doing better today. Has lost 1.5 L of fluid. Her from her weight is not accurate. She is still on IV Lasix. And is feeling much better. She ambulated in the [facility] yesterday. Was a little short of breath coming back. Objective Vital signs noted saturation 97% on 2 L HEENT tongue slightly dry throat clear lungs were clear to auscultation, cardiovascular irregular rhythm and rate Extremities with markedly decreased edema 1+ trace to 1+ now ERIKA hose in place Vital Signs Date Time Temp Pulse Resp B/P (MAP) Pulse Ox O2 Delivery O2 Flow Rate FiO2 09/23/16 10:45 97.7 73 20 111/66 (81) 97 Nasal Cannula 2.0 Intake and Output 09/23/16 07:00 Intake Total 920 ml Output Total 2390 ml Balance -1470 ml Intake Oral 920 ml Output Urine Total 2390 ml Physical Exam See above Review of Relevant I have reviewed the following items diego (where applicable) has been applied. Labs Laboratory Tests Test 09/22/16 08:26 09/23/16 05:51 White Blood Count 6.6 x10^3/uL (4.0-11.0) 7.7 x10^3/uL (4.0-11.0) Red Blood Count 3.94 x10^6/uL (3.50-5.40) 3.94 x10^6/uL (3.50-5.40) Hemoglobin 11.2 g/dL (12.0-15.5) 11.3 g/dL (12.0-15.5) Hematocrit 35.2 % (36.0-47.0) 35.2 % (36.0-47.0) Mean Corpuscular Volume 89 fL (79-100) 90 fL (79-100) Mean Corpuscular Hemoglobin 29 pg (25-35) 29 pg (25-35) Mean Corpuscular Hemoglobin Concent 32 g/dL (31-37) 32 g/dL (31-37) Red Cell Distribution Width 14.7 % (11.5-14.5) 14.8 % (11.5-14.5) Platelet Count 187 x10^3/uL (140-400) 187 x10^3/uL (140-400) Neutrophils (%) (Auto) 59 % (31-73) 60 % (31-73) Lymphocytes (%) (Auto) 23 % (24-48) 25 % (24-48) Monocytes (%) (Auto) 14 % (0-9) 12 % (0-9) Eosinophils (%) (Auto) 3 % (0-3) 3 % (0-3) Basophils (%) (Auto) 1 % (0-3) 1 % (0-3) Neutrophils # (Auto) 3.9 x10^3uL (1.8-7.7) 4.6 x10^3uL (1.8-7.7) Lymphocytes # (Auto) 1.6 x10^3/uL (1.0-4.8) 2.0 x10^3/uL (1.0-4.8) Monocytes # (Auto) 0.9 x10^3/uL (0.0-1.1) 0.9 x10^3/uL (0.0-1.1) Eosinophils # (Auto) 0.2 x10^3/uL (0.0-0.7) 0.2 x10^3/uL (0.0-0.7) Basophils # (Auto) 0.0 x10^3/uL (0.0-0.2) 0.1 x10^3/uL (0.0-0.2) Prothrombin Time 23.5 SEC (9.4-11.4) Prothromb Time International Ratio 2.3 (0.9-1.1) Sodium Level 142 mmol/L (136-145) 144 mmol/L (136-145) Potassium Level 4.2 mmol/L (3.5-5.1) 3.9 mmol/L (3.5-5.1) Chloride Level 101 mmol/L (98-107) 103 mmol/L (98-107) Carbon Dioxide Level 41 mmol/L (21-32) 39 mmol/L (21-32) Anion Gap 0 (6-14) 2 (6-14) Blood Urea Nitrogen 17 mg/dL (7-20) 17 mg/dL (7-20) Creatinine 0.8 mg/dL (0.6-1.0) 0.7 mg/dL (0.6-1.0) Estimated GFR (Cockcroft-Gault) 68.2 79.5 BUN/Creatinine Ratio 21 (6-20) 24 (6-20) Glucose Level 104 mg/dL (70-99) 95 mg/dL (70-99) Calcium Level 8.5 mg/dL (8.5-10.1) 8.5 mg/dL (8.5-10.1) Magnesium Level 2.1 mg/dL (1.8-2.4) 2.2 mg/dL (1.8-2.4) Total Bilirubin 0.6 mg/dL (0.2-1.0) 0.5 mg/dL (0.2-1.0) Aspartate Amino Transf (AST/SGOT) 15 U/L (15-37) 16 U/L (15-37) Alanine Aminotransferase (ALT/SGPT) 14 U/L (14-59) 14 U/L (14-59) Alkaline Phosphatase 54 U/L (46-116) 54 U/L (46-116) Total Protein 6.4 g/dL (6.4-8.2) 6.3 g/dL (6.4-8.2) Albumin 3.1 g/dL (3.4-5.0) 3.1 g/dL (3.4-5.0) Albumin/Globulin Ratio 0.9 (1.0-1.7) 1.0 (1.0-1.7) Medications Current Medications Furosemide (Lasix) 80 mg 1X ONCE IVP Last administered on 09/20/16t 16:00; Start 09/20/16 at 13:45; Stop 09/20/16 at 13:46; Status DC Acetaminophen (Tylenol) 650 mg PRN Q6HRS PRN PO PAIN; Start 09/20/16 at 19:00 Aspirin (Aspirin Enteric Coated) 81 mg DAILY PO ; Start 09/21/16 at 09:00; Stop 09/21/16 at 09:48; Status DC Diltiazem HCl (Cardizem 24hr Cd) 120 mg DAILY PO Last administered on 09/23/16 08:23; Start 09/21/16 at 09:00 Gabapentin (Neurontin) 300 mg HS PO Last administered on 09/22/16 21:30; Start 09/20/16 at 21:00 Acetaminophen/ Hydrocodone Bitart (Lortab 10/325) 2 tab PRN Q8HRS PRN PO PAIN Last administered on 09/23/16 05:48; Start 09/20/16 at 19:00 Metoprolol Tartrate (Lopressor) 50 mg BID PO Last administered on 09/23/16 08: 21; Start 09/20/16 at 21:00 Polyethylene Glycol (miraLAX) 17 gm PRN DAILY PRN PO CONSTIPATION; Start at 19:00 Prednisone (Prednisone) 10 mg DAILY PO Last administered on 09/23/16 08:20; Start 09/21/16 at 09:00 Warfarin Sodium (Coumadin) 2.5 mg DAILY16 PO Last administered on 09/22/16 16: 41; Start 09/21/16 at 16:00 Zolpidem Tartrate (Ambien) 5 mg HS PO Last administered on 09/22/16 21:29; Start 09/20/16 at 21:00 Cetirizine HCl (ZyrTEC) 10 mg DAILY PO Last administered on 09/23/16 08:20; Start 09/21/16 at 09:00 Multivitamins/ Calcium (Thera-M Plus) 1 tab DAILY PO Last administered on 08:20; Start 09/21/16 at 09:00 Potassium Chloride (Klor-Con) 20 meq DAILYWBKFT PO ; Start 09/21/16 at 08:00; Stop 09/21/16 at 08:00; Status DC Artificial Tears (Artificial Tears) 1 drop BID OU Last administered on 08:22; Start 09/20/16 at 21:00 Psyllium Hydrophilic Mucilloid (Metamucil) 1 pkt PRN DAILY PRN PO CONSTIPATION ; Start 09/21/16 at 09:00 Furosemide (Lasix) 80 mg DAILY IVP Last administered on 09/23/16 08:23; Start 09/21/16 at 09:00 Zolpidem Tartrate (Ambien) 5 mg PRN QHS PRN PO INSOMNIA; Start 09/20/16 at 20: 00 Warfarin Sodium (Coumadin Per Physician) 1 each PRN DAILY PRN MC SEE COMMENTS; Start 09/20/16 at 20:00 Potassium Chloride (Klor-Con) 40 meq BID66 PO Last administered on 09/23/16 05: 43; Start 09/21/16 at 06:00 Active Scripts Active Reported Metamucil Fiber Singles Packet (Psyllium Husk/Aspartame) 3.4 Gm Powd.pack 3.4 Gm PO PRN DAILY Furosemide 80 Mg Tablet 1 Tab PO DAILY Potassium Chloride 20 Meq Tablet.er 20 Meq PO DAILY Zolpidem Tartrate 10 Mg Tablet 1 Tab PO QHS Warfarin Sodium 2.5 Mg Tablet 2.5 Mg PO DAILY Miralax (Polyethylene Glycol 3350) 17 Gm Powd.pack 1 Packet PO DAILY PRN LAST DOSE GIVEN: DATE: TIME: NEXT DOSE DUE: DATE: TIME: Tylenol (Acetaminophen) 325 Mg Tablet 2 Tab PO PRN Q6HRS PRN MDD 3000mg LAST DOSE GIVEN: DATE: TIME: NEXT DOSE DUE: DATE: TIME: Multivitamins (Multivitamin) 1 Each Tablet 1 Tab PO DAILY LAST DOSE GIVEN: DATE: TIME: NEXT DOSE DUE: DATE: TIME: [place] 10-325 Tablet (Hydrocodone Bit/Acetaminophen) 1 Each Tablet 2 Tab PO Q8HRS PRN LAST DOSE GIVEN: DATE: TIME: NEXT DOSE DUE: DATE: TIME: Systane Ultra 0.4-0.3% Eye Drp (Propylene Glycol/Peg 400) 10 Ml Drops 1 Ml OP BID LAST DOSE GIVEN: DATE: TIME: NEXT DOSE DUE: DATE: TIME: Aspir 81 (Aspirin) 81 Mg Tablet.dr 81 Mg PO DAILY LAST DOSE GIVEN: DATE: TIME: NEXT DOSE DUE: DATE: TIME: Prednisone 5 Mg Tablet 10 Mg PO DAILY LAST DOSE GIVEN: DATE: TIME: NEXT DOSE DUE: DATE: TIME: Metoprolol Tartrate 50 Mg Tablet 50 Mg PO BID LAST DOSE GIVEN: DATE: TIME: NEXT DOSE DUE: DATE: TIME: Claritin (Loratadine) 10 Mg Tab.rapdis 10 Mg PO DAILY LAST DOSE GIVEN: DATE: TIME: NEXT DOSE DUE: DATE: TIME: Gabapentin 300 Mg Capsule 300 Mg PO HS LAST DOSE GIVEN: DATE: TIME: NEXT DOSE DUE: DATE: TIME: Cardizem Cd (Diltiazem Hcl) 120 Mg Cap.er.24h 120 Mg PO DAILY LAST DOSE GIVEN: DATE: TIME: NEXT DOSE DUE: DATE: TIME: Vitals/I & O Vital Sign - Last 24 Hours 09/22/16 09/22/16 09/22/16 09/22/16 15:02 16:41 17:47 18:59 Temp 97.6 97.5 Pulse 85 82 Resp 20 18 B/P (MAP) 132/60 (84) 101/60 (74) Pulse Ox 96 96 96 96 O2 Delivery Nasal Cannula Nasal Cannula Nasal Cannula Nasal Cannula O2 Flow Rate 2.0 2.0 2.0 2.0 09/22/16 09/22/16 09/22/16 09/23/16 20:00 21:30 22:40 05:43 Temp 98.1 98.0 Pulse 85 74 80 Resp 20 18 B/P (MAP) 111/71 148/72 (97) 107/60 (76) Pulse Ox 96 94 O2 Delivery Nasal Cannula Nasal Cannula Nasal Cannula O2 Flow Rate 2.0 2.0 2.0 09/23/16 09/23/16 09/23/16 09/23/16 05:48 08:00 08:21 08:23 Pulse 60 80 B/P (MAP) 107/65 107/60 Pulse Ox 94 O2 Delivery Nasal Cannula Nasal Cannula O2 Flow Rate 2.0 2.0 09/23/16 10:45 Temp 97.7 Pulse 73 Resp 20 B/P (MAP) 111/66 (81) Pulse Ox 97 O2 Delivery Nasal Cannula O2 Flow Rate 2.0 Intake and Output 09/22/16 09/22/16 09/23/16 15:00 23:00 07:00 Intake Total 600 ml 120 ml 200 ml Output Total 1765 ml 475 ml 150 ml Balance -1165 ml -355 ml 50 ml USHA LOZANO DO Sep 23, 2016 13:04
[2016-09-23 15:18] VITALS: BP 128/71
[2016-09-23] MEDS: WARFARIN 2.5 MG TABLET. PO SCH (16:09)
[2016-09-23 18:05] VITALS: BP 112/66
[2016-09-23] MEDS: GABAPENTIN 300 MG CAPSULE. PO SCH (20:25)
[2016-09-23] MEDS: ZOLPIDEM 5 MG TABLET. PO SCH (20:25)
[2016-09-23 23:57] VITALS: BP 132/87
[2016-09-24 06:12] VITALS: BP 122/68
[2016-09-24] MEDS: HYDROcodone/APAP 10/325 1 TAB TABLET PO PRN (06:22)
[2016-09-24 06:57] LABS: BASO # 0.1 x10^3/uL (0.0-0.2); BASO % 1 % (0-3); EOS # 0.3 x10^3/uL (0.0-0.7); EOS % 3 % (0-3); HEMATOCRIT 38.7 % (36.0-47.0); HEMOGLOBIN 12.1 g/dL (12.0-15.5); LYMPH # 2.4 x10^3/uL (1.0-4.8); LYMPH % 29 % (24-48); MEAN CORPUSCULAR HEMOGLOBIN 28 pg (25-35); MEAN CORPUSCULAR HGB CONC 31 g/dL (31-37); MEAN CORPUSCULAR VOLUME 91 fL (79-100); MONO % 12 % (0-9); NEUT # 4.8 x10^3uL (1.8-7.7); NEUT % 56 % (31-73); PLATELET COUNT 207 x10^3/uL (140-400); RED BLOOD COUNT 4.25 x10^6/uL (3.50-5.40); RED CELL DISTRIBUTION WIDTH 14.6 % (11.5-14.5); WHITE BLOOD COUNT 8.6 x10^3/uL (4.0-11.0)
[2016-09-24 07:06] LABS: CALCIUM 8.7 mg/dL (8.5-10.1); CREATININE 0.8 mg/dL (0.6-1.0); GFR 68.2; MAGNESIUM 2.2 mg/dL (1.8-2.4)
[2016-09-24] MEDS: MULTIVITAMIN with MINERAL TABLET. PO SCH (08:49)
[2016-09-24] MEDS: CETIRIZINE HCL 10 MG TABLET PO SCH (08:49)
[2016-09-24] MEDS: predniSONE 10 MG TABLET PO SCH (08:51)
[2016-09-24] MEDS: METOPROLOL TART IMMED RELEASE 50 MG TABLET PO SCH (08:51)
[2016-09-24] MEDS ORDERED: POTASSIUM CHLORIDE 20 MEQ TABLET.ER. PO SCH (09:00)
[2016-09-24] MEDS ORDERED: FUROSEMIDE 20 MG TABLET PO SCH (09:00)
[2016-09-24] MEDS: POLYVINYL ALCOHOL 1.4% OPHTH SOLUTION 15ML BOTTLE. OU SCH (09:15)
[2016-09-24 11:00] VITALS: BP 124/70
--- NOTE | 2016-09-24 14:01 | PDOC3 ---
Discharge Summary Visit Information Date of Admission: Sep 20, 2016 Date of Discharge: Sep 24, 2016 Final Diagnosis #1 acute on chronic diastolic heart failure #2 fluid overload has now lost 17 pounds #3 HFpEF #4 hypertension #5 chronic lymphedema #6 morbid obesity #7 impaired mobility #8 long-term use of anticoagulants #9 for risk #10 obstructive sleep apnea on CPAP 11 permanent A. fib Problems: Brief Hospital Course Allergies Allergies Coded Allergies Type Severity Reaction Last Updated Verified latex Allergy Intermediate ANAPHYLATIC 09/29/13 No clopidogrel Allergy Mild Rash 09/29/13 No Vital Signs Vital Signs Date Time Temp Pulse Resp B/P (MAP) Pulse Ox O2 Delivery O2 Flow Rate FiO2 09/24/16 08:51 112 122/68 09/24/16 06:22 91 Nasal Cannula 2.0 09/24/16 06:12 97.6 18 Lab Results Laboratory Tests Test 09/23/16 05:51 09/24/16 06:39 White Blood Count 7.7 x10^3/uL (4.0-11.0) 8.6 x10^3/uL (4.0-11.0) Red Blood Count 3.94 x10^6/uL (3.50-5.40) 4.25 x10^6/uL (3.50-5.40) Hemoglobin 11.3 g/dL (12.0-15.5) 12.1 g/dL (12.0-15.5) Hematocrit 35.2 % (36.0-47.0) 38.7 % (36.0-47.0) Mean Corpuscular Volume 90 fL (79-100) 91 fL (79-100) Mean Corpuscular Hemoglobin 29 pg (25-35) 28 pg (25-35) Mean Corpuscular Hemoglobin Concent 32 g/dL (31-37) 31 g/dL (31-37) Red Cell Distribution Width 14.8 % (11.5-14.5) 14.6 % (11.5-14.5) Platelet Count 187 x10^3/uL (140-400) 207 x10^3/uL (140-400) Neutrophils (%) (Auto) 60 % (31-73) 56 % (31-73) Lymphocytes (%) (Auto) 25 % (24-48) 29 % (24-48) Monocytes (%) (Auto) 12 % (0-9) 12 % (0-9) Eosinophils (%) (Auto) 3 % (0-3) 3 % (0-3) Basophils (%) (Auto) 1 % (0-3) 1 % (0-3) Neutrophils # (Auto) 4.6 x10^3uL (1.8-7.7) 4.8 x10^3uL (1.8-7.7) Lymphocytes # (Auto) 2.0 x10^3/uL (1.0-4.8) 2.4 x10^3/uL (1.0-4.8) Monocytes # (Auto) 0.9 x10^3/uL (0.0-1.1) 1.0 x10^3/uL (0.0-1.1) Eosinophils # (Auto) 0.2 x10^3/uL (0.0-0.7) 0.3 x10^3/uL (0.0-0.7) Basophils # (Auto) 0.1 x10^3/uL (0.0-0.2) 0.1 x10^3/uL (0.0-0.2) Sodium Level 144 mmol/L (136-145) 144 mmol/L (136-145) Potassium Level 3.9 mmol/L (3.5-5.1) 4.0 mmol/L (3.5-5.1) Chloride Level 103 mmol/L (98-107) 101 mmol/L (98-107) Carbon Dioxide Level 39 mmol/L (21-32) 40 mmol/L (21-32) Anion Gap 2 (6-14) 3 (6-14) Blood Urea Nitrogen 17 mg/dL (7-20) 18 mg/dL (7-20) Creatinine 0.7 mg/dL (0.6-1.0) 0.8 mg/dL (0.6-1.0) Estimated GFR (Cockcroft-Gault) 79.5 68.2 BUN/Creatinine Ratio 24 (6-20) Glucose Level 95 mg/dL (70-99) 98 mg/dL (70-99) Calcium Level 8.5 mg/dL (8.5-10.1) 8.7 mg/dL (8.5-10.1) Magnesium Level 2.2 mg/dL (1.8-2.4) 2.2 mg/dL (1.8-2.4) Total Bilirubin 0.5 mg/dL (0.2-1.0) Aspartate Amino Transf (AST/SGOT) 16 U/L (15-37) Alanine Aminotransferase (ALT/SGPT) 14 U/L (14-59) Alkaline Phosphatase 54 U/L (46-116) Total Protein 6.3 g/dL (6.4-8.2) Albumin 3.1 g/dL (3.4-5.0) Albumin/Globulin Ratio 1.0 (1.0-1.7) Brief Hospital Course 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 She was seen in consultation by Dr. iris Kirby, her vulcanizing machine operator. She was aggressively treated with IV Lasix and lost 17 pounds. She was feeling much much better at the time of discharge. She received PT and OT while here and will be going back to the [facility] on skilled services. She used her CPAP while she was here. Her INR was therapeutic, Pe: No acute distress, no JVD, lungs CTA, Cv irregular rhythm and rate. ext: markedly decreased edema. Discharge Information Condition at Discharge: Improved Follow Up: Weeks Disposition/Orders: D/C to Another Facility Dischare Medications Current Medications Furosemide (Lasix) 80 mg 1X ONCE IVP Last administered on 09/20/16 16:00; Start 09/20/16 at 13:45; Stop 09/20/16 at 13:46; Status DC Acetaminophen (Tylenol) 650 mg PRN Q6HRS PRN PO PAIN; Start 09/20/16 at 19:00 Aspirin (Aspirin Enteric Coated) 81 mg DAILY PO ; Start 09/21/16 at 09:00; Stop 09/21/16 at 09:48; Status DC Diltiazem HCl (Cardizem 24hr Cd) 120 mg DAILY PO Last administered on 09/24/16 08:50; Start 09/21/16 at 09:00 Gabapentin (Neurontin) 300 mg HS PO Last administered on 09/23/16 20:25; Start 09/20/16 at 21:00 Acetaminophen/ Hydrocodone Bitart (Lortab 10/325) 2 tab PRN Q8HRS PRN PO PAIN Last administered on 09/24/16 06:22; Start 09/20/16 at 19:00 Metoprolol Tartrate (Lopressor) 50 mg BID PO Last administered on 09/24/16 08: 51; Start 09/20/16 at 21:00 Polyethylene Glycol (miraLAX) 17 gm PRN DAILY PRN PO CONSTIPATION Last administered on 09/24/16 08:48; Start 09/20/16 at 19:00 Prednisone (Prednisone) 10 mg DAILY PO Last administered on 09/24/16 08:51; Start 09/21/16 at 09:00 Warfarin Sodium (Coumadin) 2.5 mg DAILY16 PO Last administered on 09/23/16 16: 09; Start 09/21/16 at 16:00 Zolpidem Tartrate (Ambien) 5 mg HS PO Last administered on 09/23/16 20:25; Start 09/20/16 at 21:00 Cetirizine HCl (ZyrTEC) 10 mg DAILY PO Last administered on 09/24/16 08:49; Start 09/21/16 at 09:00 Multivitamins/ Calcium (Thera-M Plus) 1 tab DAILY PO Last administered on 08:49; Start 09/21/16 at 09:00 Potassium Chloride (Klor-Con) 20 meq DAILYWBKFT PO ; Start 09/21/16 at 08:00; Stop 09/21/16 at 08:00; Status DC Artificial Tears (Artificial Tears) 1 drop BID OU Last administered on 09:15; Start 09/20/16 at 21:00 Psyllium Hydrophilic Mucilloid (Metamucil) 1 pkt PRN DAILY PRN PO CONSTIPATION ; Start 09/21/16 at 09:00 Furosemide (Lasix) 80 mg DAILY IVP Last administered on 09/23/16 08:23; Start 09/21/16 at 09:00; Stop 09/23/16 at 12:57; Status DC Zolpidem Tartrate (Ambien) 5 mg PRN QHS PRN PO INSOMNIA; Start 09/20/16 at 20: 00 Warfarin Sodium (Coumadin Per Physician) 1 each PRN DAILY PRN MC SEE COMMENTS; Start 09/20/16 at 20:00 Potassium Chloride (Klor-Con) 40 meq BID66 PO Last administered on 09/23/16 18: 00; Start 09/21/16 at 06:00; Stop 09/24/16 at 04:56; Status DC Furosemide (Lasix) 50 mg BID92 PO Last administered on 09/24/16 08:51; Start at 09:00 Potassium Chloride (Klor-Con) 40 meq BID94 PO Last administered on 09/24/16 08: 50; Start 09/24/16 at 09:00 Active Scripts Active Reported Metamucil Fiber Singles Packet (Psyllium Husk/Aspartame) 3.4 Gm Powd.pack 3.4 Gm PO PRN DAILY Furosemide 80 Mg Tablet 1 Tab PO DAILY Potassium Chloride 20 Meq Tablet.er 20 Meq PO DAILY Zolpidem Tartrate 10 Mg Tablet 1 Tab PO QHS Warfarin Sodium 2.5 Mg Tablet 2.5 Mg PO DAILY Miralax (Polyethylene Glycol 3350) 17 Gm Powd.pack 1 Packet PO DAILY PRN LAST DOSE GIVEN: DATE: TIME: NEXT DOSE DUE: DATE: TIME: Tylenol (Acetaminophen) 325 Mg Tablet 2 Tab PO PRN Q6HRS PRN MDD 3000mg LAST DOSE GIVEN: DATE: TIME: NEXT DOSE DUE: DATE: TIME: Multivitamins (Multivitamin) 1 Each Tablet 1 Tab PO DAILY LAST DOSE GIVEN: DATE: TIME: NEXT DOSE DUE: DATE: TIME: [place] 10-325 Tablet (Hydrocodone Bit/Acetaminophen) 1 Each Tablet 2 Tab PO Q8HRS PRN LAST DOSE GIVEN: DATE: TIME: NEXT DOSE DUE: DATE: TIME: Systane Ultra 0.4-0.3% Eye Drp (Propylene Glycol/Peg 400) 10 Ml Drops 1 Ml OP BID LAST DOSE GIVEN: DATE: TIME: NEXT DOSE DUE: DATE: TIME: Aspir 81 (Aspirin) 81 Mg Tablet.dr 81 Mg PO DAILY LAST DOSE GIVEN: DATE: TIME: NEXT DOSE DUE: DATE: TIME: Prednisone 5 Mg Tablet 10 Mg PO DAILY LAST DOSE GIVEN: DATE: TIME: NEXT DOSE DUE: DATE: TIME: Metoprolol Tartrate 50 Mg Tablet 50 Mg PO BID LAST DOSE GIVEN: DATE: TIME: NEXT DOSE DUE: DATE: TIME: Claritin (Loratadine) 10 Mg Tab.rapdis 10 Mg PO DAILY LAST DOSE GIVEN: DATE: TIME: NEXT DOSE DUE: DATE: TIME: Gabapentin 300 Mg Capsule 300 Mg PO HS LAST DOSE GIVEN: DATE: TIME: NEXT DOSE DUE: DATE: TIME: Cardizem Cd (Diltiazem Hcl) 120 Mg Cap.er.24h 120 Mg PO DAILY LAST DOSE GIVEN: DATE: TIME: NEXT DOSE DUE: DATE: TIME: Patient Instructions Patient Instuctions Discharge instructions were done by myself on the [facility] discharge. She will go home on 100 mg of Lasix as opposed to 80 mg. She will follow up with Dr. Valerio within the week. She will also have blood work to make sure her electrolytes are staying normal. Please send a copy to Dr. Jasiel Kirby vulcanizing machine operator and her primary care physician is USHA Simms DO Sep 24, 2016 14:01
== END 2016-09-24 11:00 | DRG 292 ==
LOC: 1 SOUTH 12:48
PROVIDERS: ADMIT Family Medicine; ATTEND Family Medicine
DX: I11.0 Hypertensive heart disease with heart failure (principal); E44.1 Mild protein-calorie malnutrition; I50.33 Acute on chronic diastolic (congestive) heart failure; E66.01 Morbid (severe) obesity due to excess calories; G47.33 Obstructive sleep apnea (adult) (pediatric); I48.2 Chronic atrial fibrillation; M54.9 Dorsalgia, unspecified; R26.9 Unspecified abnormalities of gait and mobility; D64.9 Anemia, unspecified; E87.6 Hypokalemia; G47.00 Insomnia, unspecified; I34.0 Nonrheumatic mitral (valve) insufficiency; I27.2 Other secondary pulmonary hypertension; R09.02 Hypoxemia; G89.29 Other chronic pain; Z68.38 Body mass index [BMI] 38.0-38.9, adult; Z79.01 Long term (current) use of anticoagulants; Z80.9 Family history of malignant neoplasm, unspecified; Z82.5 Family history of asthma and other chronic lower respiratory diseases; Z87.891 Personal history of nicotine dependence; Z88.8 Allergy status to other drugs, medicaments and biological substances; Z91.040 Latex allergy status
CPT/HCPCS: 36415; 71010; 80048; 80053; 82947; 83735; 83880; 84484; 85027; 85610; 87641; 93005; J1940; J7512; 97110; 97116; 97530; 97535

== ENCOUNTER → 2016-10-06 | Outpatient (CLI) | payer MEDICARE, OTHER ==
[2016-09-24 11:00] VITALS: BP 124/70
[~2016-10-06] MED LIST changes: +FURO80TA3 PO; +POTA20TA82 PO; +PSYL3.4P PO; +WARF2.5T71 PO; +ZOLP10TA4 PO
[2016-10-06 12:48] LABS: BASO % 0 % (0-3); EOS % 0 % (0-3); HEMATOCRIT 36.9 % (36.0-47.0); HEMOGLOBIN 11.4 g/dL (12.0-15.5); LYMPH # 0.6 x10^3/uL (1.0-4.8); LYMPH % 9 % (24-48); MEAN CORPUSCULAR HEMOGLOBIN 28 pg (25-35); MEAN CORPUSCULAR HGB CONC 31 g/dL (31-37); MEAN CORPUSCULAR VOLUME 89 fL (79-100); MONO # 0.4 x10^3/uL (0.0-1.1); MONO % 6 % (0-9); NEUT # 5.6 x10^3uL (1.8-7.7); NEUT % 84 % (31-73); PLATELET COUNT 234 x10^3/uL (140-400); RED BLOOD COUNT 4.13 x10^6/uL (3.50-5.40); WHITE BLOOD COUNT 6.7 x10^3/uL (4.0-11.0)
[2016-10-06 12:59] LABS: ALBUMIN 3.5 g/dL (3.4-5.0); ALBUMIN/GLOBULIN RATIO 1.2 (1.0-1.7); CALCIUM 8.5 mg/dL (8.5-10.1); CREATININE 0.9 mg/dL (0.6-1.0); GFR 59.5; MAGNESIUM 2.3 mg/dL (1.8-2.4); POTASSIUM 4.7 mmol/L (3.5-5.1); TOTAL BILIRUBIN 0.4 mg/dL (0.2-1.0); TOTAL PROTEIN 6.5 g/dL (6.4-8.2)
== END | disposition home or self-care (01) ==
LOC: SPEC 12:04
PROVIDERS: ATTEND Family Medicine
DX: I48.91 Unspecified atrial fibrillation (principal)
CPT/HCPCS: 36415; 80053; 83735; 85027; 85610

== ENCOUNTER → 2016-10-10 | Outpatient (CLI) | payer MEDICARE, OTHER ==
[2016-09-24 11:00] VITALS: BP 124/70
--- NOTE | 2016-10-10 14:43 | RAD ---
INDICATION:chai leg swelling pain COMPARISON: None. FINDINGS: Spectral Doppler, color and grayscale ultrasound images are obtained of the bilateral leg arterial system. Monophasic waveforms are seen within the right common femoral and superficial femoral artery as well as the popliteal artery. Portion of posterior tibial artery is not seen but monophasic waveform seen at distal right posterior tibial artery. Monophasic waveform in right peroneal artery and dorsalis pedis artery. Anterior tibial artery not visualized. Biphasic waveform in left common femoral artery and superficial femoral artery as well as popliteal artery. Biphasic waveform in posterior tibial artery and peroneal artery. Monophasic waveform in left anterior tibial artery. Dorsalis pedis is borderline biphasic. IMPRESSION: Monophasic waveforms are seen throughout the right leg arterial structures with nonvisualization of a portion of the posterior tibial artery and anterior tibial artery. Given the abnormal waveforms this raises the concern for a more proximal area of narrowing with distal waveform alteration. The left leg arterial structures also have biphasic waveforms with a portion of vessels monophasic which could be secondary to additional regions of narrowing which are not as severe as on the right.
== END | disposition home or self-care (01) ==
LOC: US 11:05
PROVIDERS: ATTEND Family Medicine
DX: M79.604 Pain in right leg (principal); M79.605 Pain in left leg; M79.89 Other specified soft tissue disorders
CPT/HCPCS: 93925

== ENCOUNTER → 2016-10-18 | Outpatient (CLI) | payer MEDICARE, OTHER ==
[2016-09-24 11:00] VITALS: BP 124/70
[2016-10-18 09:18] LABS: BASO % 1 % (0-3); EOS # 0.2 x10^3/uL (0.0-0.7); EOS % 2 % (0-3); HEMOGLOBIN 11.9 g/dL (12.0-15.5); LYMPH # 1.3 x10^3/uL (1.0-4.8); LYMPH % 16 % (24-48); MEAN CORPUSCULAR HEMOGLOBIN 27 pg (25-35); MEAN CORPUSCULAR HGB CONC 31 g/dL (31-37); MEAN CORPUSCULAR VOLUME 88 fL (79-100); MONO # 0.7 x10^3/uL (0.0-1.1); MONO % 9 % (0-9); NEUT % 73 % (31-73); PLATELET COUNT 221 x10^3/uL (140-400); RED BLOOD COUNT 4.34 x10^6/uL (3.50-5.40); RED CELL DISTRIBUTION WIDTH 14.6 % (11.5-14.5); WHITE BLOOD COUNT 8.2 x10^3/uL (4.0-11.0)
[2016-10-18 09:29] LABS: ALBUMIN 3.6 g/dL (3.4-5.0); ALBUMIN/GLOBULIN RATIO 1.2 (1.0-1.7); CALCIUM 8.7 mg/dL (8.5-10.1); GFR 52.7; POTASSIUM 4.8 mmol/L (3.5-5.1); TOTAL BILIRUBIN 0.4 mg/dL (0.2-1.0); TOTAL PROTEIN 6.7 g/dL (6.4-8.2)
[2016-10-18 10:24] LABS: SEDIMENTATION RATE 13 (0-25)
== END | disposition home or self-care (01) ==
LOC: SPEC 08:52
PROVIDERS: ATTEND Internal Medicine Rheumatology
DX: I10 Essential (primary) hypertension (principal); I50.9 Heart failure, unspecified; M31.6 Other giant cell arteritis
CPT/HCPCS: 36415; 80053; 85027; 85651

== ENCOUNTER → 2016-10-30 | Outpatient (CLI) | payer MEDICARE, OTHER ==
[2016-10-30 11:36] LABS: CALCIUM 8.5 mg/dL (8.5-10.1); CREATININE 0.9 mg/dL (0.6-1.0); POTASSIUM 4.8 mmol/L (3.5-5.1)
[2016-10-30 12:00] LABS: GFR 59.5
== END | disposition home or self-care (01) ==
LOC: SPEC 10:41
PROVIDERS: ATTEND Internal Medicine
DX: I50.9 Heart failure, unspecified (principal)
CPT/HCPCS: 36415; 80048

== ENCOUNTER → 2016-11-02 | Outpatient (CLI) | payer MEDICARE, OTHER ==
[2016-11-02 12:45] LABS: CALCIUM 8.3 mg/dL (8.5-10.1); CREATININE 1.1 mg/dL (0.6-1.0); GFR 47.2; POTASSIUM 4.5 mmol/L (3.5-5.1)
== END | disposition home or self-care (01) ==
LOC: SPEC 11:42
PROVIDERS: ATTEND Family Medicine
DX: I48.91 Unspecified atrial fibrillation (principal)
CPT/HCPCS: 36415; 80048

== ENCOUNTER → 2016-11-16 | Outpatient (CLI) | payer MEDICARE, OTHER ==
[2016-11-16 18:16] LABS: CALCIUM 8.5 mg/dL (8.5-10.1); GFR 52.7
== END | disposition home or self-care (01) ==
LOC: SPEC 17:25
PROVIDERS: ATTEND Internal Medicine
DX: I13.2 Hypertensive heart and chronic kidney disease with heart failure and with stage 5 chronic kidney disease, or end stage renal disease (principal); I50.33 Acute on chronic diastolic (congestive) heart failure; N18.6 End stage renal disease; D63.1 Anemia in chronic kidney disease; J44.9 Chronic obstructive pulmonary disease, unspecified; I48.2 Chronic atrial fibrillation; R09.89 Other specified symptoms and signs involving the circulatory and respiratory systems; Z79.899 Other long term (current) drug therapy
CPT/HCPCS: 36415; 80048

== ENCOUNTER → 2016-11-22 | Outpatient (CLI) | payer MEDICARE, OTHER ==
[2016-11-22 19:23] LABS: BASO % 0 % (0-3); EOS # 0.1 x10^3/uL (0.0-0.7); EOS % 1 % (0-3); HEMATOCRIT 41.1 % (36.0-47.0); HEMOGLOBIN 12.7 g/dL (12.0-15.5); LYMPH # 1.4 x10^3/uL (1.0-4.8); LYMPH % 18 % (24-48); MEAN CORPUSCULAR HEMOGLOBIN 27 pg (25-35); MEAN CORPUSCULAR HGB CONC 31 g/dL (31-37); MEAN CORPUSCULAR VOLUME 86 fL (79-100); MONO % 13 % (0-9); NEUT # 5.4 x10^3uL (1.8-7.7); NEUT % 68 % (31-73); PLATELET COUNT 249 x10^3/uL (140-400); RED CELL DISTRIBUTION WIDTH 15.2 % (11.5-14.5); WHITE BLOOD COUNT 7.9 x10^3/uL (4.0-11.0)
[2016-11-22 19:30] LABS: ALBUMIN/GLOBULIN RATIO 1.3 (1.0-1.7); CALCIUM 8.9 mg/dL (8.5-10.1); CREATININE 1.1 mg/dL (0.6-1.0); GFR 47.2; POTASSIUM 4.4 mmol/L (3.5-5.1); TOTAL BILIRUBIN 0.4 mg/dL (0.2-1.0); TOTAL PROTEIN 7.2 g/dL (6.4-8.2)
[2016-11-22 20:35] LABS: SEDIMENTATION RATE 8 (0-25)
== END | disposition home or self-care (01) ==
LOC: SPEC 17:25
PROVIDERS: ATTEND Family Medicine
DX: I48.91 Unspecified atrial fibrillation (principal); M31.6 Other giant cell arteritis
CPT/HCPCS: 36415; 80053; 85025; 85610; 85651

== ENCOUNTER → 2016-12-01 | Outpatient (CLI) | payer MEDICARE, OTHER | END | disposition home or self-care (01) | LOC: SPEC 10:17 | PROVIDERS: ATTEND Specialist | DX: I48.91 Unspecified atrial fibrillation (principal) | CPT/HCPCS: 36415; 85610 ==

== ENCOUNTER → 2016-12-22 | Outpatient (CLI) | payer MEDICARE, OTHER ==
[~2016-12-22] MED LIST changes: -NAPR250T2 PO; +NAPR250T6 PO
== END | disposition home or self-care (01) ==
LOC: SPEC 16:19
PROVIDERS: ATTEND Specialist
DX: I48.91 Unspecified atrial fibrillation (principal); Z79.01 Long term (current) use of anticoagulants
CPT/HCPCS: 36415; 85610

== ENCOUNTER → 2017-01-01 | Outpatient (CLI) | payer MEDICARE, OTHER | END | disposition home or self-care (01) | LOC: SPEC 14:23 | PROVIDERS: ATTEND Family Medicine | DX: I48.91 Unspecified atrial fibrillation (principal) | CPT/HCPCS: 36415; 85610 ==

== ENCOUNTER 2017-01-14 10:30 | Emergency (ER) | payer MEDICARE, OTHER ==
[~2017-01-14] VITALS: Ht 165.1 cm; Wt 105.2 kg
[2017-01-14] MEDS ORDERED: ONDANSETRON PF 4 MG/2 ML VIAL. IV ONE (11:00)
[2017-01-14] MEDS ORDERED: DIPHTH,PERTUSS(ACELL),TET TOX 0.5 ML DISP.SYRIN. VAX IM ONE (11:15)
--- NOTE | 2017-01-14 11:20 | ED.ADGEN ---
Past History Past Medical History: A-Fib, Anxiety, Asthma, CHF, COPD, Hypertension Past Surgical History: Cervical Fusion, Tonsillectomy Alcohol Use: Occasionally Drug Use: None Adult General HPI HPI Patient is a 86-year-old woman, history of COPD, atrial fibrillation, hypertension, hyperlipidemia, on Coumadin, who presents to the emergency department after a fall. Patient states that she was ambulating out of the bathroom, and she believes that she lost balance landing on her walker and fell onto the tile. Patient is complaining of pain in the left wrist and in the left lower extremity, noted have lacerations in both of these areas. Patient denies striking her head, or neck, is not complaining of pain either these areas, denies loss of consciousness, c-collar was placed on scene by medics due to distracting injury, age and anticoagulation status, per Nexus criteria. Patient denies any recent injuries, denies any preceding symptoms or syncope, any chest pain or shortness of breath, she is on 2 L nasal cannula at baseline as needed. She denies any nausea or vomiting, any vision changes, any weakness, numbness or tingling. States that her INR was checked last week, and no ingestions were made to her medications her primary care provider is Dr. Oneill. 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 Review of Systems Review of Systems Constitutional: Denies fever or chills [] Eyes: Denies change in visual acuity, redness, or eye pain [] HENT: Denies nasal congestion or sore throat [] Respiratory: Denies cough or shortness of breath [] Cardiovascular: No additional information not addressed in HPI [] GI: Denies abdominal pain, nausea, vomiting, bloody stools or diarrhea [] : Denies dysuria or hematuria [] Musculoskeletal: Denies back pain, complaining of pain in the left hand and wrist, and left lower extremity. Integument: Denies rash or skin lesions [] Neurologic: Denies headache, focal weakness or sensory changes [] Endocrine: Denies polyuria or polydipsia [] Current Medications Current Medications Current Medications Medications (Trade) Dose Ordered Sig/Nora Start Time Stop Time Status Last Admin Dose Admin Cephalexin HCl (Keflex) 500 mg 1X ONCE 01/14/17 17:15 01/14/17 17:16 DC Diphtheria/ Tetanus/Acell Pertussis (Boostrix) 0.5 ml ONCE ONCE 01/14/17 11:15 01/14/17 11:16 DC 01/14/17 13:00 0.5 ML Fentanyl Citrate (Fentanyl 2ml Vial) 25 mcg PRN Q15MIN PRN 01/14/17 11:00 01/15/17 10:59 01/14/17 13:00 25 MCG Lidocaine/Sodium Bicarbonate (Buffered Lidocaine 1%) 3 ml STK-MED ONCE 01/14/17 16:57 01/14/17 16:58 DC Ondansetron HCl (Zofran) 4 mg 1X ONCE 01/14/17 11:00 01/14/17 11:11 DC 01/14/17 11:00 4 MG Allergies Allergies Allergies Coded Allergies Type Severity Reaction Last Updated Verified latex Allergy Intermediate ANAPHYLATIC 09/29/13 No clopidogrel Allergy Mild Rash 09/29/13 No Physical Exam Physical Exam Constitutional: Well developed, well nourished, complaining of pain in the hands , wrist, and lower extremity, appears uncomfortable, non-toxic appearance. C- collar in place.[] HENT: Normocephalic, atraumatic, bilateral external ears normal, oropharynx moist, no oral exudates, nose normal. [] Eyes: PERRLA, EOMI, conjunctiva normal, no discharge. [] Neck: C-collar in place, patient complains of pain across the lower cervical region, step-offs or deformities, no bony point tenderness or crepitus. Cardiovascular:Heart rate irregular, no murmur, S1, S2, no rubs or gallops. [] Lungs & Thorax: Bilateral breath sounds clear to auscultation, no wheezing, diminished breath sounds at bases bilaterally, no rhonchi or rales appreciated, no chest wall crepitus or tenderness.[] Abdomen: Bowel sounds normal, soft, obese, no rebound, rigidity, no guarding, no tenderness, no masses, no pulsatile masses. [] Skin: Warm, dry, no erythema, no rash. [] Back: No midline tenderness or paraspinal tenderness, step-offs or deformities appreciated, no CVA tenderness. [] Extremities: Patient with lacerations noted across the dorsal aspect of the proximal phalanx of 5, 4, and 3 on the left hand, patient with skin tears with oozing noted on the lateral aspect of the left lower extremity, above the malleolus, 2 cm circumferentially, no cyanosis, no clubbing, ROM intact, no edema. [] Neurologic: Alert and oriented X 3, normal motor function, normal sensory function, no focal deficits noted. [] Psychologic: Affect normal, judgement normal, mood normal. [] Current Patient Data Vital Signs Vital Signs Date Time Temp Pulse Resp B/P (MAP) Pulse Ox O2 Delivery O2 Flow Rate FiO2 01/14/17 13:00 18 95 Nasal Cannula 2.0 01/14/17 10:35 97.9 74 Lab Results Laboratory Tests Test 01/14/17 11:25 White Blood Count 6.8 x10^3/uL (4.0-11.0) Red Blood Count 4.81 x10^6/uL (3.50-5.40) Hemoglobin 13.3 g/dL (12.0-15.5) Hematocrit 41.4 % (36.0-47.0) Mean Corpuscular Volume 86 fL (79-100) Mean Corpuscular Hemoglobin 28 pg (25-35) Mean Corpuscular Hemoglobin Concent 32 g/dL (31-37) Red Cell Distribution Width 16.5 % (11.5-14.5) H Platelet Count 212 x10^3/uL (140-400) Neutrophils (%) (Auto) 83 % (31-73) H Lymphocytes (%) (Auto) 10 % (24-48) L Monocytes (%) (Auto) 6 % (0-9) Eosinophils (%) (Auto) 1 % (0-3) Basophils (%) (Auto) 0 % (0-3) Neutrophils # (Auto) 5.6 x10^3uL (1.8-7.7) Lymphocytes # (Auto) 0.7 x10^3/uL (1.0-4.8) L Monocytes # (Auto) 0.4 x10^3/uL (0.0-1.1) Eosinophils # (Auto) 0.0 x10^3/uL (0.0-0.7) Basophils # (Auto) 0.0 x10^3/uL (0.0-0.2) Prothrombin Time 25.0 SEC (9.4-11.4) H Prothrombin Time INR 2.5 (0.9-1.1) H PTT 33 SEC (23-33) Sodium Level 143 mmol/L (136-145) Potassium Level 4.2 mmol/L (3.5-5.1) Chloride Level 102 mmol/L (98-107) Carbon Dioxide Level 41 mmol/L (21-32) H Anion Gap 0 (6-14) L Blood Urea Nitrogen 17 mg/dL (7-20) Creatinine 0.9 mg/dL (0.6-1.0) Estimated GFR (Cockcroft-Gault) 59.5 Glucose Level 150 mg/dL (70-99) H Calcium Level 8.3 mg/dL (8.5-10.1) L Troponin I Quantitative < 0.017 ng/mL (0-0.055) EKG EKG EC: Irregular rhythm, atrial fibrillation, with mild baseline artifact noted, QTc of 473, QRS of 70, no ST elevations or depressions identified, abnormal ECG, does not meet STEMI criteria. As interpreted by me.[] Radiology/Procedures Radiology/Procedures [][address] [address] IMAGING REPORT Signed PATIENT: JUSTIN ARROYO ACCOUNT: [id number] : 1930 LOCATION: ER AGE: 86 SEX: F EXAM STATUS: REG ER ORD. PHYSICIAN: JONES ZAVALA DO REASON: FALL ON COUMADIN PROCEDURE: CT HEAD AND CERVICAL SPINE WO CT scan of the head without contrast 01/14/2017 Clinical History: Head trauma post fall.. Technique: Unenhanced, contiguous, 5 mm axial sections were obtained through the head. One or more of the following individualized dose reduction techniques were utilized for this study: 1. Automated exposure control. 2. Adjustment of the mA and/or kV according to patient size. 3. Use of iterative reconstruction technique. Findings: No previous studies are available for comparison. There is generalized parenchymal atrophy. Small scattered areas of decreased attenuation are seen within the periventricular and subcortical white matter of both cerebral hemispheres consistent with areas of small vessel ischemic disease. No acute parenchymal abnormality is seen. No extra-axial fluid collection is noted. No skull fracture is seen. Impression: . No acute intracranial abnormality is seen. CT scan of the cervical spine without contrast 01/14/2017 Clinical history: Neck pain post fall. Technique: Unenhanced, contiguous, 0.625 mm axial sections were obtained through the cervical spine. 3 mm reconstructed sagittal, axial, and and coronal images were obtained. One or more of the following individualized dose reduction techniques were utilized for this study: 1. Automated exposure control. 2. Adjustment of the mA and/or kV according to patient size. 3. Use of iterative reconstruction technique. Findings: Sagittal and coronal reconstructed images demonstrate mild lateral curvature of the cervical spine convex to the right. There is reversal of the normal cervical lordosis. Incomplete fusion of the C4 and C5 vertebrae is seen. Degenerative changes are seen throughout the remaining cervical disc spaces consisting of varying degrees of disc space narrowing, vertebral endplate sclerosis and mild anterior and posterior vertebral body osteophyte progression. Mild anterolisthesis of C3 in relation to C4 is noted. Moderate atherosclerotic calcification of the carotid bifurcations is seen. No fracture or subluxation of the cervical vertebrae is seen. Degenerative changes are seen involving the uncovertebral and facet joints throughout the cervical disc spaces. Impression: No fracture or subluxation of the cervical vertebra is seen. DICTATED AND SIGNED BY: DOMINICK ABDUL MD DATE: 01/14/171218 CC: SEBASTIEN ONEILL MD; JONES ZAVALA DO ~ Impressions: [place] [address] IMAGING REPORT Signed PATIENT: JUSTIN ARROYO ACCOUNT: [id number] : 1930 LOCATION: ER AGE: 86 SEX: F EXAM STATUS: REG ER ORD. PHYSICIAN: JONES ZAVALA DO REASON: fall/pain PROCEDURE: HAND LEFT 3V Three-view left hand radiographs 01/14/2017 Clinical history: Left hand pain post fall. PA, lateral and oblique digital radiographs of the left hand were obtained. There is diffuse osteopenia the visualized bony structures. No fracture or dislocation left hand is seen. Mild to moderate degenerative changes are seen throughout the interphalangeal joints of the left hand. Moderate degenerative changes are seen involving the first carpometacarpal joint and midcarpal joint along the first carpometacarpal joint. There appears to be nondisplaced acute transverse fracture of the distal left radial metaphysis. Impression: 1. No fracture or dislocation of the left hand is seen. 2. There appears to be a nondisplaced acute fracture of the distal left radial metaphysis. DICTATED AND SIGNED BY: DOMINICK ABDUL MD DATE: 01/14/17 [id number] CC: SEBASTIEN ONEILL MD; JONES ZAVALA DO ~ Course & Med Decision Making Course & Med Decision Making Pertinent Labs and Imaging studies reviewed. (See chart for details) Due to patient's complaints, x-rays of the wrist, hands, left lower extremity obtained along with the pelvis and chest, patient also received CT imaging of the head and neck due to age, use of anticoagulation, and distracting injury. Aside from a fracture of the distal radius, no other fractures identified. Head CT and neck CT did not reveal any acutely concerning findings, c-collar was cleared without issue in the ED. Laboratory studies did not reveal any acutely concerning findings. Patient was fully anticoagulated with an INR of 2.5. Patient was observed in the ED, remained stable with normal mentation. Patient' s tetanus is updated, additionally due to the depth of the lacerations noted in her hand, patient was initiated on Keflex. Please see accompanying laceration repair note regarding hand. Patient had multiple layers of glue and Steri- Strips applied to the large irregular skin tears on the lateral aspect of the left lower extremity, as discitis area was too fragile and macerated to be appropriate for suturing. Good approximation with hemostasis was established in all these regions. Patient with Steri-Strips and sterile dressing applied to the left lower extremity, also to the fingers, additionally a volar splint that was was large enough to function as a radial gutter was applied for support of the fingers and of the distal radius fracture as stated. Patient was given contact information for Dr. Liao orthopedics, given clear and detailed wound care and follow-up instructions, to continue her medications as directed, to increase her usual Branscomb 10/325 2 tablets every 8 hours to every 6 hours, to stay nonweightbearing and use a wheelchair for ambulation until cleared by her primary care provider, and return to the ED if any new or concerning symptoms develop. Final Impression Final Impression [] Problems: Dragon Disclaimer Dragon Disclaimer This electronic medical record was generated, in whole or in part, using a voice recognition dictation system. Departure: Impression: Primary Impression: Fall Additional Impressions: Hand laceration Skin tear Distal radius fracture Disposition: 01 HOME, SELF-CARE Condition: IMPROVED Scripts Cephalexin (KEFLEX) 500 Mg Capsule 1 CAP PO BID, #14 CAP Prov: JONES ZAVALA DO 01/14/17 Hydrocodone Bit/Acetaminophen (NORCO 10-325 TABLET) 1 Each Tablet 1-2 TAB PO PRN Q6HRS Y for PAIN, #20 TAB Prov: JONES ZAVALA DO 01/14/17 Laceration Repair Lac Repair Indication: Multiple lacerations to the left hand, dorsal aspect, patient with a 1 cm laceration proximal second phalanx, 2 lacerations to the third phalanx, 1 between the DIP and PIP joints, and the other one across the second interphalangeal joint, 2 cm and 2 and half centimeters respectively, with the more proximal wound revealing intact tendon, and a 2 x 3 4 cm laceration to the fourth phalanx, just proximal to the DIP joint. Patient with a 4 cm x 6 cm skin tear, with an area of macerated skin lateral lower extremity, just above the lateral malleolus, superficial, with oozing. Procedure: The patient was placed in the appropriate position and copious irrigation performed all these wounds, nerve blocks were placed both at the wrist, and individual fingers, with good effect, a total of 3 simple sutures were applied to the fourth phalanx laceration, a total of 3 simple interrupted sutures to the distal 2 cm laceration on the third phalanx, and 3 simple sutures applied to the proximal laceration on the third phalanx, and a total of 4 simple interrupted sutures applied to the laceration to the second phalanx. Patient with significant maceration and all of these sites, however she does have full range of motion, with no involvement of tendon. Steri-Strips are applied to the lacerations for extra support, and sterile dressing was applied, patient was then placed in a splint involving the fingers, and stabilizing the distal radius fracture. For the left lower extremity, area was macerated, and skin was examined extremely thin, superficial nature, and fragility of skin maceration did not lend itself to suture repair, therefore area was irrigated, hemostasis was achieved using skin glue, several layers were applied, and then Steri-Strips were added on top for extra support. Sterile dressing was applied. Total repaired wound length: [See above for exact details. Other Items: [None The patient tolerated the procedure well Complications: [None Splinting [PATIENT/GUARDIAN/FAMILY:"Patient"] informed of findings. Distal radius fracture , volar splint with a radial gutter component was applied, due to combination of significant lacerations to fingers requiring suture repair and stabilization , and distal radius fracture]. Splint was applied by nurse Oscar, and checked by myself, Dr. Zavala. Appropriate stabilization, with normal capillary refill, patient was neurovascularly intact pre-and post splint placement. JONES ZAVALA DO Jan 14, 2017 11:20
[2017-01-14] MEDS ORDERED: LIDOCAINE WITH 8.4% SOD BICARB 3 ML DISP.SYRIN. IJ ONE ×2 (11:45→16:57)
--- NOTE | 2017-01-14 12:07 | EKG ---
[address] [address] Test Date: 2017-01-14 Test Time: 10:36:03 Pat Name: JUSTIN ARROYO Department: Room: Gender: F [employer] Record Clerk: : 1930 Requested By: JONES MOORE Order Number: [id number] Reading MD: Prabhu Peña Measurements Intervals Latty Rate: 91 P: MA: QRS: 52 QRSD: 70 T: 28 QT: 378 QTc: 473 Interpretive Statements Atrial fibrillation NON-SPECIFIC ST/T CHANGES Electronically Signed On 01-24-2017 8:10:21 CDT by Prabhu Peña
[2017-01-14 12:09] LABS: BASO % 0 % (0-3); EOS % 1 % (0-3); HEMATOCRIT 41.4 % (36.0-47.0); HEMOGLOBIN 13.3 g/dL (12.0-15.5); LYMPH # 0.7 x10^3/uL (1.0-4.8); LYMPH % 10 % (24-48); MEAN CORPUSCULAR HEMOGLOBIN 28 pg (25-35); MEAN CORPUSCULAR HGB CONC 32 g/dL (31-37); MEAN CORPUSCULAR VOLUME 86 fL (79-100); MONO # 0.4 x10^3/uL (0.0-1.1); MONO % 6 % (0-9); NEUT # 5.6 x10^3uL (1.8-7.7); NEUT % 83 % (31-73); PLATELET COUNT 212 x10^3/uL (140-400); RED BLOOD COUNT 4.81 x10^6/uL (3.50-5.40); RED CELL DISTRIBUTION WIDTH 16.5 % (11.5-14.5); WHITE BLOOD COUNT 6.8 x10^3/uL (4.0-11.0)
[2017-01-14 12:19] LABS: CALCIUM 8.3 mg/dL (8.5-10.1); CREATININE 0.9 mg/dL (0.6-1.0); GFR 59.5; POTASSIUM 4.2 mmol/L (3.5-5.1)
--- NOTE | 2017-01-14 12:29 | RAD ---
CT scan of the head without contrast 01/14/2017 Clinical History: Head trauma post fall.. Technique: Unenhanced, contiguous, 5 mm axial sections were obtained through the head. One or more of the following individualized dose reduction techniques were utilized for this study: 1. Automated exposure control. 2. Adjustment of the mA and/or kV according to patient size. 3. Use of iterative reconstruction technique. Findings: No previous studies are available for comparison. There is generalized parenchymal atrophy. Small scattered areas of decreased attenuation are seen within the periventricular and subcortical white matter of both cerebral hemispheres consistent with areas of small vessel ischemic disease. No acute parenchymal abnormality is seen. No extra-axial fluid collection is noted. No skull fracture is seen. Impression: . No acute intracranial abnormality is seen. CT scan of the cervical spine without contrast 01/14/2017 Clinical history: Neck pain post fall. Technique: Unenhanced, contiguous, 0.625 mm axial sections were obtained through the cervical spine. 3 mm reconstructed sagittal, axial, and and coronal images were obtained. One or more of the following individualized dose reduction techniques were utilized for this study: 1. Automated exposure control. 2. Adjustment of the mA and/or kV according to patient size. 3. Use of iterative reconstruction technique. Findings: Sagittal and coronal reconstructed images demonstrate mild lateral curvature of the cervical spine convex to the right. There is reversal of the normal cervical lordosis. Incomplete fusion of the C4 and C5 vertebrae is seen. Degenerative changes are seen throughout the remaining cervical disc spaces consisting of varying degrees of disc space narrowing, vertebral endplate sclerosis and mild anterior and posterior vertebral body osteophyte progression. Mild anterolisthesis of C3 in relation to C4 is noted. Moderate atherosclerotic calcification of the carotid bifurcations is seen. No fracture or subluxation of the cervical vertebrae is seen. Degenerative changes are seen involving the uncovertebral and facet joints throughout the cervical disc spaces. Impression: No fracture or subluxation of the cervical vertebra is seen.
--- NOTE | 2017-01-14 13:01 | RAD ---
Three-view left hand radiographs 01/14/2017 Clinical history: Left hand pain post fall. PA, lateral and oblique digital radiographs of the left hand were obtained. There is diffuse osteopenia the visualized bony structures. No fracture or dislocation left hand is seen. Mild to moderate degenerative changes are seen throughout the interphalangeal joints of the left hand. Moderate degenerative changes are seen involving the first carpometacarpal joint and midcarpal joint along the first carpometacarpal joint. There appears to be nondisplaced acute transverse fracture of the distal left radial metaphysis. Impression: 1. No fracture or dislocation of the left hand is seen. 2. There appears to be a nondisplaced acute fracture of the distal left radial metaphysis.
--- NOTE | 2017-01-14 13:02 | RAD ---
Three-view right wrist radiographs 01/14/2017 Clinical history: Fall with injury to the right wrist. PA, lateral and oblique digital radiographs of the right wrist were obtained. No fracture or dislocation right wrist is seen. Mild to moderate degenerative changes are seen involving the radiocarpal joint, midcarpal joint and first carpometacarpal joint. Impression: No fracture or dislocation of the right wrist is seen.
--- NOTE | 2017-01-14 13:04 | RAD ---
Three-view left ankle radiographs 01/14/2017 Clinical history: Fall with left ankle pain. AP, lateral and oblique digital radiographs of the left ankle were obtained. The left ankle mortise is intact. No fracture or dislocation of the left ankle is seen. Mild to moderate degenerative changes are seen involving the left ankle joint. Moderate enthesophyte formation is seen involving the posterior left calcaneus. Calcifications are seen within the soft tissues of the left lower leg and in the region of the plantar fascia. Impression: No fracture or dislocation of the left ankle is seen.
--- NOTE | 2017-01-14 13:05 | RAD ---
AP and lateral left tibia and fibula radiographs 01/14/2017 Clinical history: Fall with left lower leg pain. AP and lateral digital radiographs left tibia and fibula were obtained. The patient is status post left TKA. The prosthetic components are intact. No fracture or dislocation of the left tibia or fibula is seen. Impression: No fracture or dislocation of the left tibia or fibula is seen.
--- NOTE | 2017-01-14 13:06 | RAD ---
4 view left knee radiographs 01/14/2017 Clinical history: Fall with left knee pain. AP, oblique, lateral and sunrise digital radiographs of the left knee were obtained. The patient is status post left TKA. The prosthetic components are intact. No fracture or dislocation is seen. Atherosclerotic calcification of the left popliteal artery is noted. Impression: No fracture or dislocation of the left knee is seen.
--- NOTE | 2017-01-14 13:08 | RAD ---
Three-view left shoulder radiographs 01/14/2017 Clinical history: Fall with left shoulder pain. AP internal and external rotation and 2 transscapular digital radiographs of the left shoulder were obtained. There is diffuse osteopenia of the visualized bony structures. Small wires are seen within the distal left clavicle. No fracture or dislocation of the left shoulder is seen. Mild to moderate degenerative changes are seen within the left AC joint and left glenohumeral joint. Impression: No fracture or dislocation of the left shoulder is seen.
[2017-01-14] MEDS ORDERED: CEPHALEXIN 250 MG CAPSULE PO ONE (17:15)
[2017-01-14] MEDS ORDERED: CEPH-264 PO (18:45)
[2017-01-14] MEDS ORDERED: HYDR-963 PO (18:45)
[2017-01-17 12:30] VITALS: BP 148/61
== END 2017-01-14 18:45 | disposition home or self-care (01) ==
LOC: ER 10:30
DX: S52.502A Unspecified fracture of the lower end of left radius, initial encounter for closed fracture (principal); S81.812A Laceration without foreign body, left lower leg, initial encounter; S61.211A Laceration without foreign body of left index finger without damage to nail, initial encounter; S61.213A Laceration without foreign body of left middle finger without damage to nail, initial encounter; S61.215A Laceration without foreign body of left ring finger without damage to nail, initial encounter; I48.91 Unspecified atrial fibrillation; J44.9 Chronic obstructive pulmonary disease, unspecified; I11.0 Hypertensive heart disease with heart failure; I50.9 Heart failure, unspecified; F41.9 Anxiety disorder, unspecified; E78.5 Hyperlipidemia, unspecified; Z79.01 Long term (current) use of anticoagulants; Z88.8 Allergy status to other drugs, medicaments and biological substances; Z91.040 Latex allergy status; W01.0XXA Fall on same level from slipping, tripping and stumbling without subsequent striking against object, initial encounter; Y93.89 Activity, other specified; Y99.8 Other external cause status; Y92.002 Bathroom of unspecified non-institutional (private) residence as the place of occurrence of the external cause
CPT/HCPCS: 12005; 36415; 70450; 72125; 72170; 73030; 73110; 73130; 73564; 73590; 73610; 80048; 84484; 85025; 85610; 85730; 90471; 90715; 93005; 96374; 96375; 96376; 99285; J2405; J3010; 96361

== ENCOUNTER → 2017-01-16 | Outpatient (CLI) | payer MEDICARE, OTHER ==
[2017-01-14 10:35] VITALS: BP 144/88
[~2017-01-16] MED LIST changes: +CEPH-264 PO
[2017-01-16 09:54] LABS: CALCIUM 8.3 mg/dL (8.5-10.1); CREATININE 0.9 mg/dL (0.6-1.0); GFR 59.5; POTASSIUM 4.9 mmol/L (3.5-5.1)
== END | disposition home or self-care (01) ==
LOC: SPEC 09:35
PROVIDERS: ATTEND Family Medicine
DX: I13.2 Hypertensive heart and chronic kidney disease with heart failure and with stage 5 chronic kidney disease, or end stage renal disease (principal); I50.9 Heart failure, unspecified; N18.6 End stage renal disease; I48.91 Unspecified atrial fibrillation; Z79.899 Other long term (current) drug therapy
CPT/HCPCS: 36415; 80048; 85610

== ENCOUNTER → 2017-01-22 | Outpatient (CLI) | payer MEDICARE, OTHER ==
[2017-01-14 10:35] VITALS: BP 144/88
[2017-01-22 08:31] LABS: ALBUMIN 3.2 g/dL (3.4-5.0); CALCIUM 8.5 mg/dL (8.5-10.1); CREATININE 0.8 mg/dL (0.6-1.0); POTASSIUM 4.2 mmol/L (3.5-5.1); TOTAL BILIRUBIN 0.4 mg/dL (0.2-1.0); TOTAL PROTEIN 6.3 g/dL (6.4-8.2)
[2017-01-22 08:33] LABS: GFR 68.2
[2017-01-22 08:36] LABS: BASO % 1 % (0-3); EOS # 0.2 x10^3/uL (0.0-0.7); EOS % 3 % (0-3); HEMATOCRIT 41.6 % (36.0-47.0); LYMPH # 1.2 x10^3/uL (1.0-4.8); LYMPH % 16 % (24-48); MEAN CORPUSCULAR HEMOGLOBIN 27 pg (25-35); MEAN CORPUSCULAR HGB CONC 31 g/dL (31-37); MEAN CORPUSCULAR VOLUME 87 fL (79-100); MONO # 0.6 x10^3/uL (0.0-1.1); MONO % 8 % (0-9); NEUT # 5.4 x10^3uL (1.8-7.7); NEUT % 73 % (31-73); PLATELET COUNT 259 x10^3/uL (140-400); RED BLOOD COUNT 4.76 x10^6/uL (3.50-5.40); RED CELL DISTRIBUTION WIDTH 16.6 % (11.5-14.5); WHITE BLOOD COUNT 7.4 x10^3/uL (4.0-11.0)
[2017-01-22 09:49] LABS: SEDIMENTATION RATE 25 (0-25)
== END | disposition home or self-care (01) ==
LOC: SPEC 08:02
PROVIDERS: ATTEND Family Medicine
DX: I48.91 Unspecified atrial fibrillation (principal); M31.6 Other giant cell arteritis; I50.9 Heart failure, unspecified; J44.9 Chronic obstructive pulmonary disease, unspecified
CPT/HCPCS: 36415; 80053; 85025; 85610; 85651

== ENCOUNTER → 2017-02-12 | Outpatient (CLI) | payer MEDICARE, OTHER ==
[2017-01-14 10:35] VITALS: BP 144/88
== END | disposition home or self-care (01) ==
LOC: SPEC 14:51
PROVIDERS: ATTEND Family Medicine
DX: I48.91 Unspecified atrial fibrillation (principal); J44.9 Chronic obstructive pulmonary disease, unspecified; Z87.891 Personal history of nicotine dependence
CPT/HCPCS: 36415; 85610

== ENCOUNTER → 2017-02-23 | Outpatient (CLI) | payer MEDICARE, OTHER ==
[2017-01-14 10:35] VITALS: BP 144/88
[2017-02-23 09:54] LABS: BASO % 0 % (0-3); EOS # 0.1 x10^3/uL (0.0-0.7); EOS % 1 % (0-3); HEMATOCRIT 42.1 % (36.0-47.0); HEMOGLOBIN 13.4 g/dL (12.0-15.5); LYMPH # 0.8 x10^3/uL (1.0-4.8); LYMPH % 7 % (24-48); MEAN CORPUSCULAR HEMOGLOBIN 28 pg (25-35); MEAN CORPUSCULAR HGB CONC 32 g/dL (31-37); MEAN CORPUSCULAR VOLUME 89 fL (79-100); MONO # 0.5 x10^3/uL (0.0-1.1); MONO % 5 % (0-9); NEUT # 8.9 x10^3uL (1.8-7.7); NEUT % 86 % (31-73); PLATELET COUNT 305 x10^3/uL (140-400); RED BLOOD COUNT 4.71 x10^6/uL (3.50-5.40); RED CELL DISTRIBUTION WIDTH 16.5 % (11.5-14.5); WHITE BLOOD COUNT 10.3 x10^3/uL (4.0-11.0)
[2017-02-23 09:58] LABS: ALBUMIN 3.1 g/dL (3.4-5.0); ALBUMIN/GLOBULIN RATIO 0.8 (1.0-1.7); CALCIUM 8.9 mg/dL (8.5-10.1); GFR 52.7; POTASSIUM 4.3 mmol/L (3.5-5.1); TOTAL BILIRUBIN 0.4 mg/dL (0.2-1.0); TOTAL PROTEIN 7.2 g/dL (6.4-8.2)
[2017-02-23 11:09] LABS: SEDIMENTATION RATE 48 (0-25)
== END | disposition home or self-care (01) ==
LOC: SPEC 09:33
PROVIDERS: ATTEND Family Medicine
DX: M31.6 Other giant cell arteritis (principal)
CPT/HCPCS: 36415; 80053; 85025; 85651

== ENCOUNTER → 2017-02-26 | Outpatient (CLI) | payer MEDICARE, OTHER ==
[2017-01-14 10:35] VITALS: BP 144/88
== END | disposition home or self-care (01) ==
LOC: SPEC 14:35
PROVIDERS: ATTEND Family Medicine
DX: I48.91 Unspecified atrial fibrillation (principal)
CPT/HCPCS: 36415; 85610

== ENCOUNTER → 2017-03-07 | Outpatient (CLI) | payer MEDICARE, OTHER ==
[2017-01-14 10:35] VITALS: BP 144/88
[~2017-03-07] MED LIST changes: -METO50TA2 PO; +METO50TA6 PO
== END | disposition home or self-care (01) ==
LOC: SPEC 15:19
PROVIDERS: ATTEND Family Medicine
DX: I48.91 Unspecified atrial fibrillation (principal)
CPT/HCPCS: 36415; 85610

== ENCOUNTER → 2017-03-09 | Outpatient (CLI) | payer MEDICARE, OTHER ==
[2017-01-14 10:35] VITALS: BP 144/88
[2017-03-09 13:43] LABS: BGAS PH 7.37 (7.35-7.45)
--- NOTE | 2017-03-09 14:21 | RAD ---
CHEST PA LATERAL 03/09/2017 Technique: PA and lateral views of the chest were obtained. Clinical History: COUGH, HYPOXIA AT NIGHT Comparison: Chest radiograph September 12, 2016 Findings: The heart is mildly enlarged. There is diffuse interstitial coarsening. No pneumothorax or pleural effusion is identified. Decreased inspiratory volumes and rotation is seen on lateral view. Aortic calcification and tortuosity noted. No evidence of acute osseous abnormality is identified. Small linear metallic density radiopacities projecting over the left clavicle stable. Impression: Cardiomegaly and mild diffuse interstitial thickening. Findings could be chronic or represent mild interstitial edema.
[2017-03-09 14:23] LABS: BGAS PH 7.37 (7.35-7.45)
== END | disposition home or self-care (01) ==
LOC: RT 13:18
PROVIDERS: ATTEND Family Medicine
DX: I51.7 Cardiomegaly (principal)
CPT/HCPCS: 36415; 36600; 71020; 82803

== ENCOUNTER → 2017-03-23 | Outpatient (CLI) | payer MEDICARE, OTHER ==
[2017-01-14 10:35] VITALS: BP 144/88
[~2017-03-23] MED LIST changes: +CETI10TA22 PO; +DOCU-109 PO; +MIRT15TA PO; +OXYC1TAB8 PO; +PRED-220 PO; +WARF2TAB7 PO; +WARF3TAB7 PO
[2017-03-23 14:56] LABS: BASO % 0 % (0-3); EOS % 0 % (0-3); HEMATOCRIT 41.6 % (36.0-47.0); HEMOGLOBIN 12.9 g/dL (12.0-15.5); LYMPH # 0.9 x10^3/uL (1.0-4.8); LYMPH % 8 % (24-48); MEAN CORPUSCULAR HEMOGLOBIN 28 pg (25-35); MEAN CORPUSCULAR HGB CONC 31 g/dL (31-37); MEAN CORPUSCULAR VOLUME 91 fL (79-100); MONO # 1.2 x10^3/uL (0.0-1.1); MONO % 11 % (0-9); NEUT # 9.1 x10^3uL (1.8-7.7); NEUT % 81 % (31-73); PLATELET COUNT 188 x10^3/uL (140-400); RED BLOOD COUNT 4.56 x10^6/uL (3.50-5.40); RED CELL DISTRIBUTION WIDTH 16.7 % (11.5-14.5); WHITE BLOOD COUNT 11.2 x10^3/uL (4.0-11.0)
[2017-03-23 15:10] LABS: ALBUMIN 3.4 g/dL (3.4-5.0); ALBUMIN/GLOBULIN RATIO 1.1 (1.0-1.7); CALCIUM 8.5 mg/dL (8.5-10.1); GFR 52.7; POTASSIUM 4.5 mmol/L (3.5-5.1); TOTAL BILIRUBIN 0.3 mg/dL (0.2-1.0); TOTAL PROTEIN 6.5 g/dL (6.4-8.2)
[2017-03-23 16:07] LABS: SEDIMENTATION RATE 20 (0-25)
== END | disposition home or self-care (01) ==
LOC: SPEC 14:08
PROVIDERS: ATTEND Family Medicine
DX: I48.91 Unspecified atrial fibrillation (principal); F17.200 Nicotine dependence, unspecified, uncomplicated
CPT/HCPCS: 36415; 80053; 85025; 85610; 85651

== ENCOUNTER 2017-04-04 11:02 | Inpatient (IN) | payer MEDICARE, OTHER ==
[~2017-04-04] VITALS: Ht 165.1 cm; Wt 110.2 kg
[~2017-04-04 11:02] MED LIST changes: -CETI10TA22 PO; -DOCU-109 PO; -MIRT15TA PO; -OXYC1TAB8 PO; -PRED-220 PO; -WARF2TAB7 PO; -WARF3TAB7 PO
[2017-04-04 12:02] VITALS: BP 112/66
[2017-04-04 12:08] VITALS: BP 112/66
[2017-04-04] MEDS ORDERED: DOCU-109 PO (12:26)
[2017-04-04] MEDS ORDERED: MIRT15TA PO (12:26)
[2017-04-04] MEDS ORDERED: PRED-220 PO (12:26)
[2017-04-04] MEDS ORDERED: WARF2TAB7 PO (12:26)
[2017-04-04] MEDS ORDERED: CETI10TA22 PO (12:26)
[2017-04-04] MEDS ORDERED: WARF3TAB7 PO (12:26)
[2017-04-04] MEDS ORDERED: ACETAMINOPHEN 325 MG TABLET PO PRN (13:00)
[2017-04-04] MEDS ORDERED: POLYETHYLENE GLYCOL 3350 17 GM PACKET. PO PRN (13:00)
[2017-04-04 13:21] LABS: BASO % 0 % (0-3); EOS % 0 % (0-3); HEMATOCRIT 39.3 % (36.0-47.0); HEMOGLOBIN 12.4 g/dL (12.0-15.5); LYMPH # 0.6 x10^3/uL (1.0-4.8); LYMPH % 7 % (24-48); MEAN CORPUSCULAR HEMOGLOBIN 28 pg (25-35); MEAN CORPUSCULAR HGB CONC 32 g/dL (31-37); MEAN CORPUSCULAR VOLUME 90 fL (79-100); MONO # 0.5 x10^3/uL (0.0-1.1); MONO % 6 % (0-9); NEUT # 8.5 x10^3uL (1.8-7.7); NEUT % 88 % (31-73); PLATELET COUNT 458 x10^3/uL (140-400); RED BLOOD COUNT 4.38 x10^6/uL (3.50-5.40); RED CELL DISTRIBUTION WIDTH 15.3 % (11.5-14.5); WHITE BLOOD COUNT 9.7 x10^3/uL (4.0-11.0)
[2017-04-04] MEDS ORDERED: PIP/TAZO PER PHARMACY MC PRN (13:30)
[2017-04-04 13:41] LABS: ALBUMIN 2.7 g/dL (3.4-5.0); ALBUMIN/GLOBULIN RATIO 0.6 (1.0-1.7); CALCIUM 9.1 mg/dL (8.5-10.1); CREATININE 0.9 mg/dL (0.6-1.0); GFR 59.5; MAGNESIUM 2.2 mg/dL (1.8-2.4); POTASSIUM 4.6 mmol/L (3.5-5.1); TOTAL BILIRUBIN 0.3 mg/dL (0.2-1.0); TOTAL PROTEIN 7.4 g/dL (6.4-8.2)
[2017-04-04] MEDS ORDERED: VANCOMYCIN 2 GM in IV NORMAL SALINE 500ML 500 ML IV ONE (14:00)
[2017-04-04] MEDS: HYDROcodone/APAP 10/325 1 TAB TABLET PO PRN ×3 (14:07→23:13)
[2017-04-04 14:25] LABS: SEDIMENTATION RATE 78 (0-25)
[2017-04-04] MEDS ORDERED: HYDROcodone/APAP 5/325MG 1 TAB TABLET PO PRN (14:30)
[2017-04-04] MEDS: VANCOMYCIN PER PHARMACY MC PRN (15:06)
--- NOTE | 2017-04-04 15:14 | HP ---
ADMIT DATE: 04/04/2017 REASON FOR ADMISSION: Worsening cellulitis. 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 She just had an admission at [facility] for cellulitis and she went home on p.o. Augmentin and doxycycline, which she finished yesterday. Noted left leg getting more swollen, red and streaking up to the left knee. She does have a knee prosthesis. She was seen at wound Care at [facility] today and the wound doctor called Dr. Oneill, her primary care physician and recommended admission for IV antibiotics. Initially, when she was considering palliative care, this has been a recurring problem, but just has decided to go ahead with the IV antibiotics at the present time. 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 PAST SURGICAL HISTORY: Partial removal of collar bone, surgery 4 times repair of shoulder, breast biopsy 3 times, back surgery, bilateral knee replacements. ALLERGIES: LATEX AND PLAVIX. MEDICATIONS: Reviewed, updated and corrected by the nursing staff. FAMILY HISTORY: Father had COPD, at age 87. Brother ____ history of cancer, at age 47. She still does have a brother who is living. 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 She is a former smoker, does enjoy cup of coffee. 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 REVIEW OF SYSTEMS: Consistent with pain, swelling, increased erythema, increased streaking of the left lower leg wound. No subjective fever. Appetite is good. She states she has lost 10 pounds. OBJECTIVE: VITAL SIGNS: Blood pressure 112/66, pulse 85, respirations 20, temperature 97.8, pulse ox is 97% on 2 liters, height 65 inches, weight 238.5 pounds. GENERAL: Pleasant 86-year-old, in no acute distress. ENT: Her hearing is normal. Her eyes were clear. Her nose was patent. Throat was clear. Tongue was moist. NECK: Supple. LUNGS: With a few crackles in the bases. CARDIOVASCULAR: Regular rhythm and rate. ABDOMEN: Soft, nontender. EXTREMITIES: Right extremity without edema. Scar noted from total knee replacement. Left extremity wound VAC is in place. Surrounding area erythematous, edematous with some streaking of the knee area, knee area is swollen and tender. LABORATORY DATA: CO2 is 41. BNP is 2755. Albumin is 2.7. Her INR is 2.4. CBC, there is slightly elevated platelet count at 458. Sed rate is pending. White count is 9.7, keeping in mind that she has been on almost continuous antibiotics. ASSESSMENT: 1. Worsening cellulitis in the left lower extremity and may have to be concerned about the left knee prosthesis. 2. Chronic left anterior garcia wound. 3. Chronic diastolic heart failure. 4. Hypertension. 5. Chronic lymphedema. 6. Morbid obesity. 7. Impaired mobility. 8. Sleep apnea. 9. Long-term use of anticoagulants, is therapeutically coagulated. 10. Permanent atrial fibrillation. PLAN: We will resume Zosyn and vancomycin and get a bone scan to make sure it does not involve the left knee joint. Again, I had some discussions regarding palliative care, we will continue to treat her pain and we will reevaluate again tomorrow. USHA LOZANO DO DR: NOHEMY/roro JOB#: [id number] / [id number]
[2017-04-04 15:36] VITALS: BP 100/61
[2017-04-04] MEDS: WARFARIN 3 MG TABLET. PO SCH (16:06)
[2017-04-04] MEDS: PIPERACILLIN/TAZO IV Push 4.5 GM VIAL. IVP SCH ×2 (16:06→21:32)
[2017-04-04 19:37] VITALS: BP 106/51
[2017-04-04] MEDS: METOPROLOL TART IMMED RELEASE 50 MG TABLET PO SCH (21:00)
[2017-04-04] MEDS: MIRTAZAPINE 15 MG TABLET PO SCH (21:27)
[2017-04-04] MEDS: GABAPENTIN 300 MG CAPSULE. PO SCH (21:27)
[2017-04-04] MEDS: DOCUSATE SODIUM 100 MG CAPSULE PO SCH (21:29)
[2017-04-04] MEDS: POLYVINYL ALCOHOL 1.4% OPHTH SOLUTION 15ML BOTTLE. OU SCH (21:32)
[2017-04-04 23:00] VITALS: BP 100/64
[2017-04-05] MEDS: HYDROcodone/APAP 10/325 1 TAB TABLET PO PRN ×4 (05:33→19:43)
[2017-04-05] MEDS: PIPERACILLIN/TAZO IV Push 4.5 GM VIAL. IVP SCH ×3 (05:33→22:16)
[2017-04-05 05:51] VITALS: BP 119/59
[2017-04-05 06:35] LABS: HEMATOCRIT 38.4 % (36.0-47.0); HEMOGLOBIN 12.4 g/dL (12.0-15.5); RED BLOOD COUNT 4.31 x10^6/uL (3.50-5.40); WHITE BLOOD COUNT 9.2 x10^3/uL (4.0-11.0)
[2017-04-05 06:36] LABS: BASO # 0.1 x10^3/uL (0.0-0.2); BASO % 1 % (0-3); EOS # 0.2 x10^3/uL (0.0-0.7); EOS % 3 % (0-3); LYMPH % 22 % (24-48); MEAN CORPUSCULAR HEMOGLOBIN 29 pg (25-35); MEAN CORPUSCULAR HGB CONC 32 g/dL (31-37); MEAN CORPUSCULAR VOLUME 89 fL (79-100); MONO # 0.8 x10^3/uL (0.0-1.1); MONO % 9 % (0-9); NEUT # 6.1 x10^3uL (1.8-7.7); NEUT % 66 % (31-73); PLATELET COUNT 463 x10^3/uL (140-400); RED CELL DISTRIBUTION WIDTH 15.4 % (11.5-14.5)
[2017-04-05 06:40] LABS: ALBUMIN 2.4 g/dL (3.4-5.0); ALBUMIN/GLOBULIN RATIO 0.5 (1.0-1.7); CALCIUM 8.9 mg/dL (8.5-10.1); CREATININE 0.8 mg/dL (0.6-1.0); GFR 68.2; MAGNESIUM 2.2 mg/dL (1.8-2.4); TOTAL BILIRUBIN 0.3 mg/dL (0.2-1.0); TOTAL PROTEIN 6.9 g/dL (6.4-8.2)
[2017-04-05] MEDS: POTASSIUM CHLORIDE 20 MEQ TABLET.ER. PO SCH (08:34)
[2017-04-05] MEDS: POLYVINYL ALCOHOL 1.4% OPHTH SOLUTION 15ML BOTTLE. OU SCH ×2 (08:34→19:45)
[2017-04-05] MEDS: ASPIRIN ENTERIC COATED 81 MG TABLET.DR. PO SCH (08:34)
[2017-04-05] MEDS: FUROSEMIDE 80 MG TABLET PO SCH (08:36)
[2017-04-05] MEDS: METOPROLOL TART IMMED RELEASE 50 MG TABLET PO SCH ×2 (08:37→21:00)
[2017-04-05] MEDS: MULTIVITAMIN with MINERAL TABLET. PO SCH (08:37)
[2017-04-05] MEDS: predniSONE 10 MG TABLET PO SCH (08:37)
[2017-04-05] MEDS ORDERED: PSYLLIUM SEED (WITH SUGAR) PACKET. PO PRN (09:00)
--- NOTE | 2017-04-05 09:59 | PDOC ---
SUBJECTIVE: A 86-year-old male admitted yesterday 110/worsening cellulitis of the left lower leg. Some concern about the left knee prosthesis as swelling and mild erythema extends up to the area. A bone scan has been ordered. It has not been done as of yet. She is sitting up eating her breakfast and had a relatively good night OBJECTIVE: Vital signs noted. HEENT: Color is pale eyes are clear tongue is moist, neck supple Lungs: Clear in all rodriguez Cardiovascular: Irregular rhythm and rate consistent with chronic A. fib Extremities: Continued erythema, swelling, and a red streak up to the left knee of the left lower extremity. There is not extension past the left knee. Wound VAC in place. Vital Signs: Vital Signs Date Time Temp Pulse Resp B/P (MAP) Pulse Ox O2 Delivery O2 Flow Rate FiO2 04/05/17 08:37 113 119/59 04/05/17 06:30 18 Nasal Cannula 2.0 04/05/17 05:51 97.6 95 I & O Intake and Output 04/05/17 07:00 Intake Total 975 ml Balance 975 ml Intake Oral 470 ml IV Total 505 ml # Voids 4 # Bowel Movements 1 Labs: Laboratory Tests Test 04/04/17 13:12 04/05/17 06:11 White Blood Count 9.7 x10^3/uL (4.0-11.0) 9.2 x10^3/uL (4.0-11.0) Red Blood Count 4.38 x10^6/uL (3.50-5.40) 4.31 x10^6/uL (3.50-5.40) Hemoglobin 12.4 g/dL (12.0-15.5) 12.4 g/dL (12.0-15.5) Hematocrit 39.3 % (36.0-47.0) 38.4 % (36.0-47.0) Mean Corpuscular Volume 90 fL (79-100) 89 fL (79-100) Mean Corpuscular Hemoglobin 28 pg (25-35) 29 pg (25-35) Mean Corpuscular Hemoglobin Concent 32 g/dL (31-37) 32 g/dL (31-37) Red Cell Distribution Width 15.3 % (11.5-14.5) 15.4 % (11.5-14.5) Platelet Count 458 x10^3/uL (140-400) 463 x10^3/uL (140-400) Neutrophils (%) (Auto) 88 % (31-73) 66 % (31-73) Lymphocytes (%) (Auto) 7 % (24-48) 22 % (24-48) Monocytes (%) (Auto) 6 % (0-9) 9 % (0-9) Eosinophils (%) (Auto) 0 % (0-3) 3 % (0-3) Basophils (%) (Auto) 0 % (0-3) 1 % (0-3) Neutrophils # (Auto) 8.5 x10^3uL (1.8-7.7) 6.1 x10^3uL (1.8-7.7) Lymphocytes # (Auto) 0.6 x10^3/uL (1.0-4.8) 2.0 x10^3/uL (1.0-4.8) Monocytes # (Auto) 0.5 x10^3/uL (0.0-1.1) 0.8 x10^3/uL (0.0-1.1) Eosinophils # (Auto) 0.0 x10^3/uL (0.0-0.7) 0.2 x10^3/uL (0.0-0.7) Basophils # (Auto) 0.0 x10^3/uL (0.0-0.2) 0.1 x10^3/uL (0.0-0.2) Erythrocyte Sedimentation Rate 78 (0-25) Prothrombin Time 24.4 SEC (9.4-11.4) 24.1 SEC (9.4-11.4) Prothromb Time International Ratio 2.4 (0.9-1.1) 2.4 (0.9-1.1) Sodium Level 142 mmol/L (136-145) 143 mmol/L (136-145) Potassium Level 4.6 mmol/L (3.5-5.1) 4.0 mmol/L (3.5-5.1) Chloride Level 98 mmol/L (98-107) 100 mmol/L (98-107) Carbon Dioxide Level 41 mmol/L (21-32) 37 mmol/L (21-32) Anion Gap 3 (6-14) 6 (6-14) Blood Urea Nitrogen 14 mg/dL (7-20) 10 mg/dL (7-20) Creatinine 0.9 mg/dL (0.6-1.0) 0.8 mg/dL (0.6-1.0) Estimated GFR (Cockcroft-Gault) 59.5 68.2 BUN/Creatinine Ratio 16 (6-20) 13 (6-20) Glucose Level 146 mg/dL (70-99) 102 mg/dL (70-99) Calcium Level 9.1 mg/dL (8.5-10.1) 8.9 mg/dL (8.5-10.1) Magnesium Level 2.2 mg/dL (1.8-2.4) 2.2 mg/dL (1.8-2.4) Total Bilirubin 0.3 mg/dL (0.2-1.0) 0.3 mg/dL (0.2-1.0) Aspartate Amino Transf (AST/SGOT) 13 U/L (15-37) 14 U/L (15-37) Alanine Aminotransferase (ALT/SGPT) 17 U/L (14-59) 15 U/L (14-59) Alkaline Phosphatase 67 U/L (46-116) 60 U/L (46-116) HC-Edo-B-Type Natriuretic Peptide 2755 pg/mL (0-449) Total Protein 7.4 g/dL (6.4-8.2) 6.9 g/dL (6.4-8.2) Albumin 2.7 g/dL (3.4-5.0) 2.4 g/dL (3.4-5.0) Albumin/Globulin Ratio 0.6 (1.0-1.7) 0.5 (1.0-1.7) Physical Exam: See objective ASSESSMENT: NT: 1. Worsening cellulitis in the left lower extremity and may have to be concerned about the left knee prosthesis. 2. Chronic left anterior garcia wound. 3. Chronic diastolic heart failure. 4. Hypertension. 5. Chronic lymphedema. 6. Morbid obesity. 7. Impaired mobility. 8. Sleep apnea. 9. Long-term use of anticoagulants, is therapeutically coagulated. 10. Permanent atrial fibrillation. PLAN: Continue current antibiotics. The cover most organisms. sed rate elevated. bone scan pending. BLAKE,USHA M DO Apr 05, 2017 09:59
[2017-04-05 10:21] VITALS: BP 150/79
[2017-04-05] MEDS: VANCOMYCIN 1.75 GM in IV NORMAL SALINE 500ML 500 ML IV SCH (15:19)
--- NOTE | 2017-04-05 15:24 | RAD ---
Nuclear medicine bone scan. Indication: Painful swollen left knee with open wound on the tibia in the lower half of the leg. Technique: Triple phase bone scan with 26.7 mCi of technetium 99m MDP. Comparison: Plain films from 01/14/2017. Findings: Status post left total knee arthroplasty. The angiographic phase images demonstrate increased radiotracer activity in the distal femur. The blood pool phase images demonstrate persistent radiotracer activity in the distal femur. The equilibrium phase images demonstrate increased activity in the lateral femoral condyle of the left knee joint. Also noted is the left breast with activity in the distal tibia. Uptake is seen within bilateral ankle joints likely degenerative in nature. Impression: 1. Persistent delayed activity in the lateral femoral condyle of the left femur may suggest hardware loosening or osteomyelitis. Joint aspiration should be considered. 2. Persistent delayed activity in the distal left leg may suggest osteomyelitis.
[2017-04-05 16:00] VITALS: BP 105/57
[2017-04-05] MEDS ORDERED: WARFARIN 2 MG TABLET. PO SCH (16:00)
[2017-04-05 19:26] VITALS: BP 103/52
[2017-04-05] MEDS: GABAPENTIN 300 MG CAPSULE. PO SCH (19:43)
[2017-04-05] MEDS: LACTOBACILLUS RHAMNOSUS GG 1 CAPSULE. PO SCH (19:44)
[2017-04-05] MEDS: MIRTAZAPINE 15 MG TABLET PO SCH (19:44)
[2017-04-05] MEDS: DOCUSATE SODIUM 100 MG CAPSULE PO SCH (19:45)
[2017-04-05 22:58] VITALS: BP 116/68
[2017-04-06] MEDS: PIPERACILLIN/TAZO IV Push 4.5 GM VIAL. IVP SCH ×3 (05:37→20:12)
[2017-04-06] MEDS: HYDROcodone/APAP 10/325 1 TAB TABLET PO PRN ×4 (05:41→20:11)
[2017-04-06 06:46] LABS: BASO # 0.1 x10^3/uL (0.0-0.2); BASO % 1 % (0-3); EOS # 0.2 x10^3/uL (0.0-0.7); EOS % 2 % (0-3); HEMATOCRIT 35.4 % (36.0-47.0); HEMOGLOBIN 11.4 g/dL (12.0-15.5); LYMPH # 1.3 x10^3/uL (1.0-4.8); LYMPH % 17 % (24-48); MEAN CORPUSCULAR HEMOGLOBIN 29 pg (25-35); MEAN CORPUSCULAR HGB CONC 32 g/dL (31-37); MEAN CORPUSCULAR VOLUME 89 fL (79-100); MONO # 0.8 x10^3/uL (0.0-1.1); MONO % 10 % (0-9); NEUT # 5.4 x10^3uL (1.8-7.7); NEUT % 70 % (31-73); PLATELET COUNT 425 x10^3/uL (140-400); RED BLOOD COUNT 3.97 x10^6/uL (3.50-5.40); WHITE BLOOD COUNT 7.8 x10^3/uL (4.0-11.0)
[2017-04-06 07:06] LABS: ALBUMIN 2.2 g/dL (3.4-5.0); ALBUMIN/GLOBULIN RATIO 0.5 (1.0-1.7); CALCIUM 8.7 mg/dL (8.5-10.1); CREATININE 0.8 mg/dL (0.6-1.0); GFR 68.2; MAGNESIUM 2.3 mg/dL (1.8-2.4); POTASSIUM 3.7 mmol/L (3.5-5.1); TOTAL BILIRUBIN 0.3 mg/dL (0.2-1.0); TOTAL PROTEIN 6.4 g/dL (6.4-8.2)
[2017-04-06] MEDS: predniSONE 10 MG TABLET PO SCH (09:24)
[2017-04-06] MEDS: LACTOBACILLUS RHAMNOSUS GG 1 CAPSULE. PO SCH ×2 (09:24→20:11)
[2017-04-06] MEDS: FUROSEMIDE 80 MG TABLET PO SCH (09:24)
[2017-04-06] MEDS: POTASSIUM CHLORIDE 20 MEQ TABLET.ER. PO SCH (09:24)
[2017-04-06] MEDS: POLYVINYL ALCOHOL 1.4% OPHTH SOLUTION 15ML BOTTLE. OU SCH ×2 (09:24→20:10)
[2017-04-06] MEDS: MULTIVITAMIN with MINERAL TABLET. PO SCH (09:24)
[2017-04-06] MEDS: METOPROLOL TART IMMED RELEASE 50 MG TABLET PO SCH ×2 (09:25→21:00)
[2017-04-06] MEDS: ASPIRIN ENTERIC COATED 81 MG TABLET.DR. PO SCH (09:25)
[2017-04-06 10:31] VITALS: BP 109/56
[2017-04-06 13:55] LABS: VANC TR 12.1 mcg/mL (10.0-20.0)
[2017-04-06] MEDS: VANCOMYCIN PER PHARMACY MC PRN (14:14)
[2017-04-06] MEDS: VANCOMYCIN 1.75 GM in IV NORMAL SALINE 500ML 500 ML IV SCH (14:25)
--- NOTE | 2017-04-06 14:50 | PDOC ---
SUBJECTIVE: Day of visit:04/06/17 Sister and another sister from [facility] to discuss the findings of her bone scan which came in late yesterday afternoon. Bone scan reveals some persistent delayed activity in the lateral femoral condyle of the left femur suggesting probable osteomyelitis and persistent delayed activity in the distal left leg also probably osteomyelitis. I also Dr. Oneill discussed these findings with me. The options include continued IV antibiotics also would require a joint aspiration to ascertain organisms. Also in some cases and amputation might be required. These were discussed but not in detail with sister. She will meet with Dr. Oneill tomorrow. Otherwise she is sleeping well she is feeling reasonably well and had and has no specific complaints OBJECTIVE: Vital Signs: Vital Signs Date Time Temp Pulse Resp B/P (MAP) Pulse Ox O2 Delivery O2 Flow Rate FiO2 04/06/17 10:31 98.0 95 20 109/56 (73) 99 Nasal Cannula 2.0 I & O Intake and Output 04/06/17 07:00 Intake Total 1611.13 ml Output Total 1450 ml Balance 161.13 ml Intake Oral 1100 ml IV Total 511.13 ml Output Urine Total 1450 ml # Voids 1 # Bowel Movements 2 Labs: Laboratory Tests Test 04/05/17 06:11 04/06/17 06:03 04/06/17 13:36 White Blood Count 9.2 x10^3/uL (4.0-11.0) 7.8 x10^3/uL (4.0-11.0) Red Blood Count 4.31 x10^6/uL (3.50-5.40) 3.97 x10^6/uL (3.50-5.40) Hemoglobin 12.4 g/dL (12.0-15.5) 11.4 g/dL (12.0-15.5) Hematocrit 38.4 % (36.0-47.0) 35.4 % (36.0-47.0) Mean Corpuscular Volume 89 fL (79-100) 89 fL (79-100) Mean Corpuscular Hemoglobin 29 pg (25-35) 29 pg (25-35) Mean Corpuscular Hemoglobin Concent 32 g/dL (31-37) 32 g/dL (31-37) Red Cell Distribution Width 15.4 % (11.5-14.5) 15.0 % (11.5-14.5) Platelet Count 463 x10^3/uL (140-400) 425 x10^3/uL (140-400) Neutrophils (%) (Auto) 66 % (31-73) 70 % (31-73) Lymphocytes (%) (Auto) 22 % (24-48) 17 % (24-48) Monocytes (%) (Auto) 9 % (0-9) 10 % (0-9) Eosinophils (%) (Auto) 3 % (0-3) 2 % (0-3) Basophils (%) (Auto) 1 % (0-3) 1 % (0-3) Neutrophils # (Auto) 6.1 x10^3uL (1.8-7.7) 5.4 x10^3uL (1.8-7.7) Lymphocytes # (Auto) 2.0 x10^3/uL (1.0-4.8) 1.3 x10^3/uL (1.0-4.8) Monocytes # (Auto) 0.8 x10^3/uL (0.0-1.1) 0.8 x10^3/uL (0.0-1.1) Eosinophils # (Auto) 0.2 x10^3/uL (0.0-0.7) 0.2 x10^3/uL (0.0-0.7) Basophils # (Auto) 0.1 x10^3/uL (0.0-0.2) 0.1 x10^3/uL (0.0-0.2) Prothrombin Time 24.1 SEC (9.4-11.4) 23.2 SEC (9.4-11.4) Prothromb Time International Ratio 2.4 (0.9-1.1) 2.3 (0.9-1.1) Sodium Level 143 mmol/L (136-145) 145 mmol/L (136-145) Potassium Level 4.0 mmol/L (3.5-5.1) 3.7 mmol/L (3.5-5.1) Chloride Level 100 mmol/L (98-107) 102 mmol/L (98-107) Carbon Dioxide Level 37 mmol/L (21-32) 41 mmol/L (21-32) Anion Gap 6 (6-14) 2 (6-14) Blood Urea Nitrogen 10 mg/dL (7-20) 11 mg/dL (7-20) Creatinine 0.8 mg/dL (0.6-1.0) 0.8 mg/dL (0.6-1.0) Estimated GFR (Cockcroft-Gault) 68.2 68.2 BUN/Creatinine Ratio 13 (6-20) 14 (6-20) Glucose Level 102 mg/dL (70-99) 96 mg/dL (70-99) Calcium Level 8.9 mg/dL (8.5-10.1) 8.7 mg/dL (8.5-10.1) Magnesium Level 2.2 mg/dL (1.8-2.4) 2.3 mg/dL (1.8-2.4) Total Bilirubin 0.3 mg/dL (0.2-1.0) 0.3 mg/dL (0.2-1.0) Aspartate Amino Transf (AST/SGOT) 14 U/L (15-37) 14 U/L (15-37) Alanine Aminotransferase (ALT/SGPT) 15 U/L (14-59) 14 U/L (14-59) Alkaline Phosphatase 60 U/L (46-116) 55 U/L (46-116) Total Protein 6.9 g/dL (6.4-8.2) 6.4 g/dL (6.4-8.2) Albumin 2.4 g/dL (3.4-5.0) 2.2 g/dL (3.4-5.0) Albumin/Globulin Ratio 0.5 (1.0-1.7) 0.5 (1.0-1.7) Vancomycin Level Trough 12.1 mcg/mL (10.0-20.0) Vancomycin Last Dose Date 04/05/2017 Vancomycin Last Dose Time 1400 Physical Exam: Labs noted. Color pale Tongue slightly dry Lungs clear to auscultation Cardiovascular irregular rhythm and rate Abdomen mildly protuberant bowel sounds positive nontender extremities left leg swelling has diminished over the left knee there is still a red streak there. She has the wound VAC was changed yesterday. Area over the lower left garcia still quite erythematous down to the lower portion of the left ankle. ASSESSMENT: 1. Worsening cellulitis in the left lower extremity and may have to be concerned about the left knee prosthesis. 2. Chronic left anterior garcia wound. 3. Chronic diastolic heart failure. 4. Hypertension. 5. Chronic lymphedema. 6. Morbid obesity. 7. Impaired mobility. 8. Sleep apnea. 9. Long-term use of anticoagulants, is therapeutically coagulated. 10. Permanent atrial fibrillation. PLAN: Patient verbalizes that she may not continue to try to harvey this infection. She will meet with Dr. Oneill her PCP as well as SR. Almanza tomorrow. Continue antibiotics for now. USHA LOZANO DO Apr 06, 2017 14:50
[2017-04-06 16:08] VITALS: BP 103/59
[2017-04-06] MEDS: WARFARIN 3 MG TABLET. PO SCH (17:00)
[2017-04-06 19:33] VITALS: BP 100/53
[2017-04-06] MEDS: GABAPENTIN 300 MG CAPSULE. PO SCH (20:10)
[2017-04-06] MEDS: MIRTAZAPINE 15 MG TABLET PO SCH (20:11)
[2017-04-06] MEDS: DOCUSATE SODIUM 100 MG CAPSULE PO SCH (21:00)
[2017-04-06 22:08] VITALS: BP 119/79
[2017-04-07] MEDS: PIPERACILLIN/TAZO IV Push 4.5 GM VIAL. IVP SCH (05:04)
[2017-04-07] MEDS: HYDROcodone/APAP 10/325 1 TAB TABLET PO PRN ×3 (05:04→13:18)
[2017-04-07 05:35] VITALS: BP 109/61
[2017-04-07 06:25] LABS: BASO # 0.1 x10^3/uL (0.0-0.2); BASO % 1 % (0-3); EOS # 0.1 x10^3/uL (0.0-0.7); EOS % 1 % (0-3); HEMATOCRIT 36.5 % (36.0-47.0); HEMOGLOBIN 11.5 g/dL (12.0-15.5); LYMPH # 1.5 x10^3/uL (1.0-4.8); LYMPH % 18 % (24-48); MEAN CORPUSCULAR HEMOGLOBIN 28 pg (25-35); MEAN CORPUSCULAR HGB CONC 32 g/dL (31-37); MEAN CORPUSCULAR VOLUME 89 fL (79-100); MONO # 0.7 x10^3/uL (0.0-1.1); MONO % 8 % (0-9); NEUT # 5.9 x10^3uL (1.8-7.7); NEUT % 71 % (31-73); PLATELET COUNT 439 x10^3/uL (140-400); RED BLOOD COUNT 4.09 x10^6/uL (3.50-5.40); WHITE BLOOD COUNT 8.4 x10^3/uL (4.0-11.0)
[2017-04-07 06:39] LABS: ALBUMIN 2.2 g/dL (3.4-5.0); ALBUMIN/GLOBULIN RATIO 0.5 (1.0-1.7); CALCIUM 8.7 mg/dL (8.5-10.1); CREATININE 0.8 mg/dL (0.6-1.0); GFR 68.2; MAGNESIUM 2.2 mg/dL (1.8-2.4); POTASSIUM 3.6 mmol/L (3.5-5.1); TOTAL BILIRUBIN 0.3 mg/dL (0.2-1.0); TOTAL PROTEIN 6.6 g/dL (6.4-8.2)
[2017-04-07] MEDS: MULTIVITAMIN with MINERAL TABLET. PO SCH (08:19)
[2017-04-07] MEDS: ASPIRIN ENTERIC COATED 81 MG TABLET.DR. PO SCH (08:20)
[2017-04-07] MEDS: LACTOBACILLUS RHAMNOSUS GG 1 CAPSULE. PO SCH (08:20)
[2017-04-07] MEDS: FUROSEMIDE 80 MG TABLET PO SCH (08:20)
[2017-04-07] MEDS: predniSONE 10 MG TABLET PO SCH (08:21)
[2017-04-07] MEDS: METOPROLOL TART IMMED RELEASE 50 MG TABLET PO SCH (08:22)
[2017-04-07] MEDS: POTASSIUM CHLORIDE 20 MEQ TABLET.ER. PO SCH (08:23)
[2017-04-07] MEDS: POLYVINYL ALCOHOL 1.4% OPHTH SOLUTION 15ML BOTTLE. OU SCH (08:24)
[2017-04-07 11:10] VITALS: BP 121/87
[2017-04-07] MEDS: VANCOMYCIN PER PHARMACY MC PRN (12:53)
--- NOTE | 2017-04-07 13:33 | PDOC ---
PROGRESS NOTES Assessment 1. 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 Pt states that she is 86 years old and feels that it is "God's will" that whatever happens is in His hands. I have had this discussion with Sister before, in my office, and she has been very clear about her desire to stay out of the hospital and stay comfortable. In order to adequately treat her condition she would likely require surgery, prolonged IV abx, and possibly worse. She states she does not want to do all that. SHe would like to proceed with palliative care and Hospice at this point. I feel this is appropriate, especially since she was considering Hospice for her chronic respiratory failure even before she developed this infection. I have recommended that we discontinue her IV and IV medications. I will continue the Lortab as it seems to be helping with her pain. She wishes to wait until Sunday to do anything about the wound vac or her other chronic medications, and I think that is reasonable. We will plan to transfer her back to [facility] on Hospice whenever the facility feels it is appropriate. Problems: Plan of Care: see other orders Subjective Pt states things are stable, not worse. Pain controlled w/ Lortab. Denies SOA or CP. No fever. Denies diarrhea or vomiting. Would like to discuss palliative care. Objective Vital Signs Date Time Temp Pulse Resp B/P (MAP) Pulse Ox O2 Delivery O2 Flow Rate FiO2 04/07/17 13:18 18 04/07/17 11:10 98.5 86 121/87 (98) 97 Nasal Cannula 2.0 Intake and Output 04/07/17 07:00 Intake Total 1050 ml Balance 1050 ml Intake Oral 1050 ml # Voids 7 # Bowel Movements 2 Abdomen: Soft, No tenderness Heart: Other (Irregular, no murmur) Extremities: Other (LLE w/ mild erythema, edema, and warmth about the knee joint, as well as TTP. The wound appears improved based on the appearance described the past couple days. ) General: Alert, Oriented X3, Cooperative, No acute distress HEENT: EOMI, Mucous membr. moist/pink Lungs: Other (Diffuse diminished breath sounds, no wheezes or crackles) Neck: No JVD Neuro: Normal speech Review of Relevant I have reviewed the following items diego (where applicable) has been applied. Labs Laboratory Tests Test 04/06/17 06:03 04/06/17 13:36 04/07/17 05:51 White Blood Count 7.8 x10^3/uL (4.0-11.0) 8.4 x10^3/uL (4.0-11.0) Red Blood Count 3.97 x10^6/uL (3.50-5.40) 4.09 x10^6/uL (3.50-5.40) Hemoglobin 11.4 g/dL (12.0-15.5) 11.5 g/dL (12.0-15.5) Hematocrit 35.4 % (36.0-47.0) 36.5 % (36.0-47.0) Mean Corpuscular Volume 89 fL (79-100) 89 fL (79-100) Mean Corpuscular Hemoglobin 29 pg (25-35) 28 pg (25-35) Mean Corpuscular Hemoglobin Concent 32 g/dL (31-37) 32 g/dL (31-37) Red Cell Distribution Width 15.0 % (11.5-14.5) 15.0 % (11.5-14.5) Platelet Count 425 x10^3/uL (140-400) 439 x10^3/uL (140-400) Neutrophils (%) (Auto) 70 % (31-73) 71 % (31-73) Lymphocytes (%) (Auto) 17 % (24-48) 18 % (24-48) Monocytes (%) (Auto) 10 % (0-9) 8 % (0-9) Eosinophils (%) (Auto) 2 % (0-3) 1 % (0-3) Basophils (%) (Auto) 1 % (0-3) 1 % (0-3) Neutrophils # (Auto) 5.4 x10^3uL (1.8-7.7) 5.9 x10^3uL (1.8-7.7) Lymphocytes # (Auto) 1.3 x10^3/uL (1.0-4.8) 1.5 x10^3/uL (1.0-4.8) Monocytes # (Auto) 0.8 x10^3/uL (0.0-1.1) 0.7 x10^3/uL (0.0-1.1) Eosinophils # (Auto) 0.2 x10^3/uL (0.0-0.7) 0.1 x10^3/uL (0.0-0.7) Basophils # (Auto) 0.1 x10^3/uL (0.0-0.2) 0.1 x10^3/uL (0.0-0.2) Prothrombin Time 23.2 SEC (9.4-11.4) Prothromb Time International Ratio 2.3 (0.9-1.1) Sodium Level 145 mmol/L (136-145) 144 mmol/L (136-145) Potassium Level 3.7 mmol/L (3.5-5.1) 3.6 mmol/L (3.5-5.1) Chloride Level 102 mmol/L (98-107) 102 mmol/L (98-107) Carbon Dioxide Level 41 mmol/L (21-32) 41 mmol/L (21-32) Anion Gap 2 (6-14) 1 (6-14) Blood Urea Nitrogen 11 mg/dL (7-20) 8 mg/dL (7-20) Creatinine 0.8 mg/dL (0.6-1.0) 0.8 mg/dL (0.6-1.0) Estimated GFR (Cockcroft-Gault) 68.2 68.2 BUN/Creatinine Ratio 14 (6-20) 10 (6-20) Glucose Level 96 mg/dL (70-99) 94 mg/dL (70-99) Calcium Level 8.7 mg/dL (8.5-10.1) 8.7 mg/dL (8.5-10.1) Magnesium Level 2.3 mg/dL (1.8-2.4) 2.2 mg/dL (1.8-2.4) Total Bilirubin 0.3 mg/dL (0.2-1.0) 0.3 mg/dL (0.2-1.0) Aspartate Amino Transf (AST/SGOT) 14 U/L (15-37) 13 U/L (15-37) Alanine Aminotransferase (ALT/SGPT) 14 U/L (14-59) 12 U/L (14-59) Alkaline Phosphatase 55 U/L (46-116) 56 U/L (46-116) Total Protein 6.4 g/dL (6.4-8.2) 6.6 g/dL (6.4-8.2) Albumin 2.2 g/dL (3.4-5.0) 2.2 g/dL (3.4-5.0) Albumin/Globulin Ratio 0.5 (1.0-1.7) 0.5 (1.0-1.7) Vancomycin Level Trough 12.1 mcg/mL (10.0-20.0) Vancomycin Last Dose Date 04/05/2017 Vancomycin Last Dose Time 1400 Medications Current Medications Acetaminophen (Tylenol) 650 mg PRN Q6HRS PRN PO PAIN; Start 04/04/17 at 13:00 Aspirin (Aspirin Enteric Coated) 81 mg DAILY PO Last administered on 04/07/17at 08:20; Start 04/05/17 at 09:00 Diltiazem HCl (Cardizem 24hr Cd) 120 mg DAILY PO Last administered on 08:21; Start 04/05/17 at 09:00 Docusate Sodium (Colace) 100 mg QHS PO Last administered on 04/04/17at 21:29; Start 04/04/17 at 21:00 Furosemide (Lasix) 80 mg DAILY PO Last administered on 04/07/17 08:20; Start 04/05/17 at 09:00 Gabapentin (Neurontin) 300 mg HS PO Last administered on 04/06/17at 20:10; Start 04/04/17 at 21:00 Acetaminophen/ Hydrocodone Bitart (Lortab 10/325) 1 tab PRN Q6HRS PRN PO PAIN Last administered on 04/05/17at 05:33; Start 04/04/17 at 13:00; Stop 04/05/17 at 10:22; Status DC Metoprolol Tartrate (Lopressor) 50 mg BID PO Last administered on 04/07/17 08: 22; Start 04/04/17 at 21:00 Mirtazapine (Remeron) 15 mg QHS PO Last administered on 04/06/17at 20:11; Start 04/04/17 at 21:00 Polyethylene Glycol (miraLAX) 17 gm PRN DAILY PRN PO CONSTIPATION; Start at 13:00 Prednisone (Prednisone) 10 mg DAILY PO Last administered on 04/07/17 08:21; Start 04/05/17 at 09:00 Warfarin Sodium (Coumadin) 2 mg QTUTHSASU PO Last administered on 04/05/17at 16: 05; Start 04/05/17 at 16:00 Warfarin Sodium (Coumadin) 3 mg QMWF PO Last administered on 04/06/17at 17:00; Start 04/04/17 at 16:00 Multivitamins/ Calcium (Thera-M Plus) 1 tab DAILY PO Last administered on 08:19; Start 04/05/17 at 09:00 Potassium Chloride (Klor-Con) 60 meq DAILYWBKFT PO Last administered on 08:23; Start 04/05/17 at 08:00 Artificial Tears (Artificial Tears) 1 drop BID OU Last administered on at 08:34; Start 04/04/17 at 21:00; Stop 04/05/17 at 14:29; Status DC Psyllium Hydrophilic Mucilloid (Metamucil) 1 pkt PRN DAILY PRN PO CONSTIPATION ; Start 04/05/17 at 09:00 Piperacillin Sod/ Tazobactam Sod (Zosyn Per Pharmacy) 1 each PRN DAILY PRN MC SEE COMMENTS; Start 04/04/17 at 13:30 Vancomycin HCl (Vanco Per Pharmacy) 1 each PRN DAILY PRN MC SEE COMMENTS Last administered on 04/07/17at 12:53; Start 04/04/17 at 13:30 Vancomycin HCl 2 gm/Sodium Chloride 500 ml @ 250 mls/hr 1X ONCE IV Last administered on 04/04/17at 14:01; Start 04/04/17 at 14:00; Stop 04/04/17 at 15:59 ; Status DC Warfarin Sodium (Coumadin Per Pharmacy) 1 each PRN DAILY PRN MC SEE COMMENTS Last administered on 04/04/17at 14:09; Start 04/04/17 at 14:00 Piperacillin Sod/ Tazobactam Sod (Zosyn) 4.5 gm Q8HRS IVP Last administered on 04/07/17at 05:04; Start 04/04/17 at 14:00 Acetaminophen/ Hydrocodone Bitart (Lortab 5/325) 1 tab PRN Q6HRS PRN PO PAIN; Start 04/04/17 at 14:30; Stop 04/04/17 at 14:30; Status DC Vancomycin HCl 1.75 gm/Sodium Chloride 500 ml @ 250 mls/hr Q24H IV Last administered on 04/06/17at 14:25; Start 04/05/17 at 14:00; Stop 04/07/17 at 12:17 ; Status DC Acetaminophen/ Hydrocodone Bitart (Lortab 10/325) 1 tab PRN Q4HRS PRN PO PAIN Last administered on 04/07/17at 13:18; Start 04/05/17 at 10:30 Lactobacillus Rhamnosus (Culturelle) 1 cap BID PO Last administered on at 08:20; Start 04/05/17 at 21:00 Artificial Tears (Artificial Tears) 1 drop BID OU Last administered on at 20:10; Start 04/05/17 at 14:29 Vancomycin HCl 1 each 1X ONCE MC Last administered on 04/06/17at 12:30; Start 04/06/17 at 12:30; Stop 04/06/17 at 12:31; Status DC Vancomycin HCl 2 gm/Sodium Chloride 500 ml @ 250 mls/hr Q24H IV ; Start at 14:00 Vancomycin HCl 1 each 1X ONCE MC ; Start 04/09/17 at 13:30; Stop 04/09/17 at 13 :31 Active Scripts Active Archer 10-325 Tablet (Hydrocodone Bit/Acetaminophen) 1 Each Tablet 1-2 Tab PO PRN Q6HRS PRN Reported Warfarin Sodium 3 Mg Tablet 1 Tab PO QMWF Warfarin Sodium 2 Mg Tablet 1 Tab PO QTUTHSASU Colace (Docusate Sodium) 100 Mg Capsule 1 Cap PO QHS Zyrtec (Cetirizine Hcl) 10 Mg Tablet 1 Tab PO DAILY Remeron (Mirtazapine) 15 Mg Tablet 1 Tab PO QHS Prednisone 10 Mg Tablet 10 Mg PO DAILY Metamucil Fiber Singles Packet (Psyllium Husk/Aspartame) 3.4 Gm Powd.pack 3.4 Gm PO PRN DAILY Furosemide 80 Mg Tablet 1 Tab PO DAILY Potassium Chloride 20 Meq Tablet.er 60 Meq PO DAILY Miralax (Polyethylene Glycol 3350) 17 Gm Powd.pack 1 Packet PO DAILY PRN LAST DOSE GIVEN: DATE: TIME: NEXT DOSE DUE: DATE: TIME: Tylenol (Acetaminophen) 325 Mg Tablet 2 Tab PO PRN Q6HRS PRN MDD 3000mg LAST DOSE GIVEN: DATE: TIME: NEXT DOSE DUE: DATE: TIME: Multivitamins (Multivitamin) 1 Each Tablet 1 Tab PO DAILY LAST DOSE GIVEN: DATE: TIME: NEXT DOSE DUE: DATE: TIME: Systane Ultra 0.4-0.3% Eye Drp (Propylene Glycol/Peg 400) 10 Ml Drops 1 Ml OP BID LAST DOSE GIVEN: DATE: TIME: NEXT DOSE DUE: DATE: TIME: Aspir 81 (Aspirin) 81 Mg Tablet.dr 81 Mg PO DAILY LAST DOSE GIVEN: DATE: TIME: NEXT DOSE DUE: DATE: TIME: Metoprolol Tartrate 50 Mg Tablet 50 Mg PO BID LAST DOSE GIVEN: DATE: TIME: NEXT DOSE DUE: DATE: TIME: Gabapentin 300 Mg Capsule 300 Mg PO HS LAST DOSE GIVEN: DATE: TIME: NEXT DOSE DUE: DATE: TIME: Cardizem Cd (Diltiazem Hcl) 120 Mg Cap.er.24h 120 Mg PO DAILY LAST DOSE GIVEN: DATE: TIME: NEXT DOSE DUE: DATE: TIME: Vitals/I & O Vital Sign - Last 24 Hours 04/06/17 04/06/17 04/06/17 04/06/17 16:08 19:30 19:33 20:11 Temp 98.2 98.0 Pulse 82 81 Resp 20 18 B/P (MAP) 103/59 (74) 100/53 (69) Pulse Ox 97 97 97 O2 Delivery Nasal Cannula Nasal Cannula Nasal Cannula Nasal Cannula O2 Flow Rate 2.0 2.0 2.0 2.0 04/06/17 04/06/17 04/07/17 04/07/17 21:00 22:08 05:04 05:35 Temp 97.7 98.3 Pulse 81 86 61 Resp 20 22 B/P (MAP) 100/59 119/79 (92) 109/61 (77) Pulse Ox 97 97 97 O2 Delivery Nasal Cannula Nasal Cannula Nasal Cannula O2 Flow Rate 2.0 2.0 2.0 04/07/17 04/07/17 04/07/17 04/07/17 06:04 08:21 08:22 09:05 Pulse 61 61 B/P (MAP) 109/61 109/61 Pulse Ox 97 O2 Delivery Nasal Cannula Nasal Cannula O2 Flow Rate 2.0 2.0 04/07/17 04/07/17 04/07/17 09:59 11:10 13:18 Temp 98.5 Pulse 86 Resp 18 18 B/P (MAP) 121/87 (98) Pulse Ox 97 O2 Delivery Nasal Cannula O2 Flow Rate 2.0 Intake and Output 04/06/17 04/06/17 04/07/17 15:00 23:00 07:00 Intake Total 900 ml 150 ml Balance 900 ml 150 ml SEBASTIEN OVALLE MD Apr 07, 2017 13:33
[2017-04-07] MEDS ORDERED: VANCOMYCIN 2 GM in IV NORMAL SALINE 500ML 500 ML IV SCH (14:00)
[2017-04-07] MEDS ORDERED: oxyCODONE/APAP 7.5/325 1 TAB TABLET PO PRN (14:15)
[2017-04-07] MEDS ORDERED: OXYC1TAB8 PO (14:22)
--- NOTE | 2017-04-07 14:23 | DISCH ---
DISCHARGE INSTRUCTIONS-DC Condition on Discharge Condition on Discharge: Guarded Problems: Activity after Discharge Activity Instructions for Disc: Activity as tolerated Diet after Discharge Diet after Discharge: Regular SEBASTIEN OVALLE MD Apr 07, 2017 14:23
--- NOTE | 2017-04-07 14:27 | PDOC3 ---
Discharge Summary Discharge Summary Date of Admission Date of Admission: Apr 04, 2017 at 11:02 Admitting Diagnosis 1. Osteomyelitis Left Leg 2. Chronic respiratory failure 3. Cellulitis LLE 4. Chronic osteoarthritis 5. PMR 6. Chronic steroid use Date of Discharge: Apr 07, 2017 Discharge Diagnosis 1. Osteomyelitis Left Leg 2. Chronic respiratory failure 3. Cellulitis LLE 4. Chronic osteoarthritis 5. PMR 6. Chronic steroid use Laboratory Findings Laboratory Tests Test 04/04/17 09:55 04/04/17 13:12 04/05/17 06:11 04/06/17 06:03 Nasal Screen MRSA (PCR) Negative (Negative) White Blood Count 9.7 x10^3/uL (4.0-11.0) 9.2 x10^3/uL (4.0-11.0) 7.8 x10^3/uL (4.0-11.0) Red Blood Count 4.38 x10^6/uL (3.50-5.40) 4.31 x10^6/uL (3.50-5.40) 3.97 x10^6/uL (3.50-5.40) Hemoglobin 12.4 g/dL (12.0-15.5) 12.4 g/dL (12.0-15.5) 11.4 g/dL (12.0-15.5) Hematocrit 39.3 % (36.0-47.0) 38.4 % (36.0-47.0) 35.4 % (36.0-47.0) Mean Corpuscular Volume 90 fL (79-100) 89 fL (79-100) 89 fL (79-100) Mean Corpuscular Hemoglobin 28 pg (25-35) 29 pg (25-35) 29 pg (25-35) Mean Corpuscular Hemoglobin Concent 32 g/dL (31-37) 32 g/dL (31-37) 32 g/dL (31-37) Red Cell Distribution Width 15.3 % (11.5-14.5) 15.4 % (11.5-14.5) 15.0 % (11.5-14.5) Platelet Count 458 x10^3/uL (140-400) 463 x10^3/uL (140-400) 425 x10^3/uL (140-400) Neutrophils (%) (Auto) 88 % (31-73) 66 % (31-73) 70 % (31-73) Lymphocytes (%) (Auto) 7 % (24-48) 22 % (24-48) 17 % (24-48) Monocytes (%) (Auto) 6 % (0-9) 9 % (0-9) 10 % (0-9) Eosinophils (%) (Auto) 0 % (0-3) 3 % (0-3) 2 % (0-3) Basophils (%) (Auto) 0 % (0-3) 1 % (0-3) 1 % (0-3) Neutrophils # (Auto) 8.5 x10^3uL (1.8-7.7) 6.1 x10^3uL (1.8-7.7) 5.4 x10^3uL (1.8-7.7) Lymphocytes # (Auto) 0.6 x10^3/uL (1.0-4.8) 2.0 x10^3/uL (1.0-4.8) 1.3 x10^3/uL (1.0-4.8) Monocytes # (Auto) 0.5 x10^3/uL (0.0-1.1) 0.8 x10^3/uL (0.0-1.1) 0.8 x10^3/uL (0.0-1.1) Eosinophils # (Auto) 0.0 x10^3/uL (0.0-0.7) 0.2 x10^3/uL (0.0-0.7) 0.2 x10^3/uL (0.0-0.7) Basophils # (Auto) 0.0 x10^3/uL (0.0-0.2) 0.1 x10^3/uL (0.0-0.2) 0.1 x10^3/uL (0.0-0.2) Erythrocyte Sedimentation Rate 78 (0-25) Prothrombin Time 24.4 SEC (9.4-11.4) 24.1 SEC (9.4-11.4) 23.2 SEC (9.4-11.4) Prothromb Time International Ratio 2.4 (0.9-1.1) 2.4 (0.9-1.1) 2.3 (0.9-1.1) Sodium Level 142 mmol/L (136-145) 143 mmol/L (136-145) 145 mmol/L (136-145) Potassium Level 4.6 mmol/L (3.5-5.1) 4.0 mmol/L (3.5-5.1) 3.7 mmol/L (3.5-5.1) Chloride Level 98 mmol/L (98-107) 100 mmol/L (98-107) 102 mmol/L (98-107) Carbon Dioxide Level 41 mmol/L (21-32) 37 mmol/L (21-32) 41 mmol/L (21-32) Anion Gap 3 (6-14) 6 (6-14) 2 (6-14) Blood Urea Nitrogen 14 mg/dL (7-20) 10 mg/dL (7-20) 11 mg/dL (7-20) Creatinine 0.9 mg/dL (0.6-1.0) 0.8 mg/dL (0.6-1.0) 0.8 mg/dL (0.6-1.0) Estimated GFR (Cockcroft-Gault) 59.5 68.2 68.2 BUN/Creatinine Ratio 16 (6-20) 13 (6-20) 14 (6-20) Glucose Level 146 mg/dL (70-99) 102 mg/dL (70-99) 96 mg/dL (70-99) Calcium Level 9.1 mg/dL (8.5-10.1) 8.9 mg/dL (8.5-10.1) 8.7 mg/dL (8.5-10.1) Magnesium Level 2.2 mg/dL (1.8-2.4) 2.2 mg/dL (1.8-2.4) 2.3 mg/dL (1.8-2.4) Total Bilirubin 0.3 mg/dL (0.2-1.0) 0.3 mg/dL (0.2-1.0) 0.3 mg/dL (0.2-1.0) Aspartate Amino Transf (AST/SGOT) 13 U/L (15-37) 14 U/L (15-37) 14 U/L (15-37) Alanine Aminotransferase (ALT/SGPT) 17 U/L (14-59) 15 U/L (14-59) 14 U/L (14-59) Alkaline Phosphatase 67 U/L (46-116) 60 U/L (46-116) 55 U/L (46-116) EK-Hxn-P-Type Natriuretic Peptide 2755 pg/mL (0-449) Total Protein 7.4 g/dL (6.4-8.2) 6.9 g/dL (6.4-8.2) 6.4 g/dL (6.4-8.2) Albumin 2.7 g/dL (3.4-5.0) 2.4 g/dL (3.4-5.0) 2.2 g/dL (3.4-5.0) Albumin/Globulin Ratio 0.6 (1.0-1.7) 0.5 (1.0-1.7) 0.5 (1.0-1.7) Test 04/06/17 13:36 04/07/17 05:51 Vancomycin Level Trough 12.1 mcg/mL (10.0-20.0) Vancomycin Last Dose Date 04/05/2017 Vancomycin Last Dose Time 1400 White Blood Count 8.4 x10^3/uL (4.0-11.0) Red Blood Count 4.09 x10^6/uL (3.50-5.40) Hemoglobin 11.5 g/dL (12.0-15.5) Hematocrit 36.5 % (36.0-47.0) Mean Corpuscular Volume 89 fL (79-100) Mean Corpuscular Hemoglobin 28 pg (25-35) Mean Corpuscular Hemoglobin Concent 32 g/dL (31-37) Red Cell Distribution Width 15.0 % (11.5-14.5) Platelet Count 439 x10^3/uL (140-400) Neutrophils (%) (Auto) 71 % (31-73) Lymphocytes (%) (Auto) 18 % (24-48) Monocytes (%) (Auto) 8 % (0-9) Eosinophils (%) (Auto) 1 % (0-3) Basophils (%) (Auto) 1 % (0-3) Neutrophils # (Auto) 5.9 x10^3uL (1.8-7.7) Lymphocytes # (Auto) 1.5 x10^3/uL (1.0-4.8) Monocytes # (Auto) 0.7 x10^3/uL (0.0-1.1) Eosinophils # (Auto) 0.1 x10^3/uL (0.0-0.7) Basophils # (Auto) 0.1 x10^3/uL (0.0-0.2) Sodium Level 144 mmol/L (136-145) Potassium Level 3.6 mmol/L (3.5-5.1) Chloride Level 102 mmol/L (98-107) Carbon Dioxide Level 41 mmol/L (21-32) Anion Gap 1 (6-14) Blood Urea Nitrogen 8 mg/dL (7-20) Creatinine 0.8 mg/dL (0.6-1.0) Estimated GFR (Cockcroft-Gault) 68.2 BUN/Creatinine Ratio 10 (6-20) Glucose Level 94 mg/dL (70-99) Calcium Level 8.7 mg/dL (8.5-10.1) Magnesium Level 2.2 mg/dL (1.8-2.4) Total Bilirubin 0.3 mg/dL (0.2-1.0) Aspartate Amino Transf (AST/SGOT) 13 U/L (15-37) Alanine Aminotransferase (ALT/SGPT) 12 U/L (14-59) Alkaline Phosphatase 56 U/L (46-116) Total Protein 6.6 g/dL (6.4-8.2) Albumin 2.2 g/dL (3.4-5.0) Albumin/Globulin Ratio 0.5 (1.0-1.7) Hospital Course Pt was admitted due to cellulitis failing outpatient therapy. 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 After a long discussion w/ pt and her friend, it was decided to pursue palliative care with Hospice. Pt is agreeable. Will be sent back to [facility] today. Pain control is the primary goal. Condition at Discharge: Hospice Home Meds Active Scripts Oxycodone Hcl/Acetaminophen (OXYCODON-ACETAMINOPHEN 7.5-325) 1 Each Tablet, 1 TAB PO PRN Q4HRS Y for PAIN, #60 TAB 0 Refills Prov:SEBASTIEN OVALLE MD 04/07/17 Hydrocodone Bit/Acetaminophen (NORCO 10-325 TABLET) 1 Each Tablet, 1-2 TAB PO PRN Q6HRS Y for PAIN, #20 TAB Prov:JONES MOORE DO 01/14/17 Reported Medications Warfarin Sodium (WARFARIN SODIUM) 3 Mg Tablet, 1 TAB PO QMWF, #30 TAB 5 Refills 04/04/17 Warfarin Sodium (WARFARIN SODIUM) 2 Mg Tablet, 1 TAB PO QTUTHSASU, #90 TAB 1 Refill 04/04/17 Docusate Sodium (COLACE) 100 Mg Capsule, 1 CAP PO QHS, #30 CAP 04/04/17 Cetirizine Hcl (ZYRTEC) 10 Mg Tablet, 1 TAB PO DAILY, #30 TAB 2 Refills 04/04/17 Mirtazapine (REMERON) 15 Mg Tablet, 1 TAB PO QHS, #30 TAB 1 Refill 04/04/17 Prednisone (PREDNISONE) 10 Mg Tablet, 10 MG PO DAILY, TAB 04/04/17 Psyllium Husk/Aspartame (METAMUCIL FIBER SINGLES PACKET) 3.4 Gm Powd.pack, 3.4 GM PO PRN DAILY, PKT 09/20/16 Furosemide (FUROSEMIDE) 80 Mg Tablet, 1 TAB PO DAILY, #30 TAB 5 Refills 09/20/16 Potassium Chloride (POTASSIUM CHLORIDE) 20 Meq Tablet.er, 60 MEQ PO DAILY, TAB 09/20/16 Polyethylene Glycol 3350 (MIRALAX) 17 Gm Powd.pack, 1 PACKET PO DAILY Y for CONSTIPATION LAST DOSE GIVEN: DATE: TIME: NEXT DOSE DUE: DATE: TIME: 11/15/15 Acetaminophen (TYLENOL) 325 Mg Tablet, 2 TAB PO PRN Q6HRS Y for PAIN MDD 3000mg LAST DOSE GIVEN: DATE: TIME: NEXT DOSE DUE: DATE: TIME: 11/15/15 Multivitamin (MULTIVITAMINS) 1 Each Tablet, 1 TAB PO DAILY for SUPPLEMENT LAST DOSE GIVEN: DATE: TIME: NEXT DOSE DUE: DATE: TIME: 11/15/15 Propylene Glycol/Peg 400 (SYSTANE ULTRA 0.4-0.3% EYE DRP) 10 Ml Drops, 1 ML OP BID for EYE DROPS LAST DOSE GIVEN: DATE: TIME: NEXT DOSE DUE: DATE: TIME: 12/11/14 Aspirin (ASPIR 81) 81 Mg Tablet.dr, 81 MG PO DAILY for PREVENT BLOOD CLOTS LAST DOSE GIVEN: DATE: TIME: NEXT DOSE DUE: DATE: TIME: 09/29/13 Metoprolol Tartrate (METOPROLOL TARTRATE) 50 Mg Tablet, 50 MG PO BID for HIGH BLOOD PRESSURE LAST DOSE GIVEN: DATE: TIME: NEXT DOSE DUE: DATE: TIME: 09/29/13 Gabapentin (GABAPENTIN) 300 Mg Capsule, 300 MG PO HS for PAIN LAST DOSE GIVEN: DATE: TIME: NEXT DOSE DUE: DATE: TIME: 09/29/13 Diltiazem Hcl (CARDIZEM CD) 120 Mg Cap.er.24h, 120 MG PO DAILY for HIGH BLOOD PRESSURE LAST DOSE GIVEN: DATE: TIME: NEXT DOSE DUE: DATE: TIME: 09/29/13 Inpatient Meds Current Medications Acetaminophen (Tylenol) 650 mg PRN Q6HRS PRN PO PAIN; Start 04/04/17 at 13:00 Aspirin (Aspirin Enteric Coated) 81 mg DAILY PO Last administered on 04/07/17at 08:20; Start 04/05/17 at 09:00 Diltiazem HCl (Cardizem 24hr Cd) 120 mg DAILY PO Last administered on at 08:21; Start 04/05/17 at 09:00 Docusate Sodium (Colace) 100 mg QHS PO Last administered on 04/04/17at 21:29; Start 04/04/17 at 21:00 Furosemide (Lasix) 80 mg DAILY PO Last administered on 04/07/17at 08:20; Start 04/05/17 at 09:00 Gabapentin (Neurontin) 300 mg HS PO Last administered on 04/06/17at 20:10; Start 04/04/17 at 21:00 Acetaminophen/ Hydrocodone Bitart (Lortab 10/325) 1 tab PRN Q6HRS PRN PO PAIN Last administered on 04/05/17at 05:33; Start 04/04/17 at 13:00; Stop 04/05/17 at 10:22; Status DC Metoprolol Tartrate (Lopressor) 50 mg BID PO Last administered on 04/07/17at 08: 22; Start 04/04/17 at 21:00 Mirtazapine (Remeron) 15 mg QHS PO Last administered on 04/06/17at 20:11; Start 04/04/17 at 21:00 Polyethylene Glycol (miraLAX) 17 gm PRN DAILY PRN PO CONSTIPATION; Start at 13:00 Prednisone (Prednisone) 10 mg DAILY PO Last administered on 04/07/17at 08:21; Start 04/05/17 at 09:00 Warfarin Sodium (Coumadin) 2 mg QTUTHSASU PO Last administered on 04/05/17at 16: 05; Start 04/05/17 at 16:00 Warfarin Sodium (Coumadin) 3 mg QMWF PO Last administered on 04/06/17at 17:00; Start 04/04/17 at 16:00 Multivitamins/ Calcium (Thera-M Plus) 1 tab DAILY PO Last administered on at 08:19; Start 04/05/17 at 09:00 Potassium Chloride (Klor-Con) 60 meq DAILYWBKFT PO Last administered on at 08:23; Start 04/05/17 at 08:00 Artificial Tears (Artificial Tears) 1 drop BID OU Last administered on at 08:34; Start 04/04/17 at 21:00; Stop 04/05/17 at 14:29; Status DC Psyllium Hydrophilic Mucilloid (Metamucil) 1 pkt PRN DAILY PRN PO CONSTIPATION ; Start 04/05/17 at 09:00 Piperacillin Sod/ Tazobactam Sod (Zosyn Per Pharmacy) 1 each PRN DAILY PRN MC SEE COMMENTS; Start 04/04/17 at 13:30; Stop 04/07/17 at 13:36; Status DC Vancomycin HCl (Vanco Per Pharmacy) 1 each PRN DAILY PRN MC SEE COMMENTS Last administered on 04/07/17at 12:53; Start 04/04/17 at 13:30; Stop 04/07/17 at 13:36 ; Status DC Vancomycin HCl 2 gm/Sodium Chloride 500 ml @ 250 mls/hr 1X ONCE IV Last administered on 04/04/17at 14:01; Start 04/04/17 at 14:00; Stop 04/04/17 at 15:59 ; Status DC Warfarin Sodium (Coumadin Per Pharmacy) 1 each PRN DAILY PRN MC SEE COMMENTS Last administered on 04/04/17at 14:09; Start 04/04/17 at 14:00 Piperacillin Sod/ Tazobactam Sod (Zosyn) 4.5 gm Q8HRS IVP Last administered on 04/07/17at 05:04; Start 04/04/17 at 14:00; Stop 04/07/17 at 13:36; Status DC Acetaminophen/ Hydrocodone Bitart (Lortab 5/325) 1 tab PRN Q6HRS PRN PO PAIN; Start 04/04/17 at 14:30; Stop 04/04/17 at 14:30; Status DC Vancomycin HCl 1.75 gm/Sodium Chloride 500 ml @ 250 mls/hr Q24H IV Last administered on 04/06/17at 14:25; Start 04/05/17 at 14:00; Stop 04/07/17 at 12:17 ; Status DC Acetaminophen/ Hydrocodone Bitart (Lortab 10/325) 1 tab PRN Q4HRS PRN PO PAIN Last administered on 04/07/17at 13:18; Start 04/05/17 at 10:30; Stop 04/07/17 at 14:03; Status DC Lactobacillus Rhamnosus (Culturelle) 1 cap BID PO Last administered on at 08:20; Start 04/05/17 at 21:00 Artificial Tears (Artificial Tears) 1 drop BID OU Last administered on at 20:10; Start 04/05/17 at 14:29 Vancomycin HCl 1 each 1X ONCE MC Last administered on 04/06/17at 12:30; Start 04/06/17 at 12:30; Stop 04/06/17 at 12:31; Status DC Vancomycin HCl 2 gm/Sodium Chloride 500 ml @ 250 mls/hr Q24H IV ; Start at 14:00; Stop 04/07/17 at 14:00; Status DC Vancomycin HCl 1 each 1X ONCE MC ; Start 04/09/17 at 13:30; Stop 04/09/17 at 13 :30; Status DC Oxycodone/ Acetaminophen (Percocet 7.5/ 325) 1 tab PRN Q4HRS PRN PO PAIN; Start 04/07/17 at 14:15 Active Scripts Active Oxycodon-Acetaminophen 7.5-325 (Oxycodone Hcl/Acetaminophen) 1 Each Tablet 1 Tab PO PRN Q4HRS PRN Greer 10-325 Tablet (Hydrocodone Bit/Acetaminophen) 1 Each Tablet 1-2 Tab PO PRN Q6HRS PRN Reported Warfarin Sodium 3 Mg Tablet 1 Tab PO QMWF Warfarin Sodium 2 Mg Tablet 1 Tab PO QTUTHSASU Colace (Docusate Sodium) 100 Mg Capsule 1 Cap PO QHS Zyrtec (Cetirizine Hcl) 10 Mg Tablet 1 Tab PO DAILY Remeron (Mirtazapine) 15 Mg Tablet 1 Tab PO QHS Prednisone 10 Mg Tablet 10 Mg PO DAILY Metamucil Fiber Singles Packet (Psyllium Husk/Aspartame) 3.4 Gm Powd.pack 3.4 Gm PO PRN DAILY Furosemide 80 Mg Tablet 1 Tab PO DAILY Potassium Chloride 20 Meq Tablet.er 60 Meq PO DAILY Miralax (Polyethylene Glycol 3350) 17 Gm Powd.pack 1 Packet PO DAILY PRN LAST DOSE GIVEN: DATE: TIME: NEXT DOSE DUE: DATE: TIME: Tylenol (Acetaminophen) 325 Mg Tablet 2 Tab PO PRN Q6HRS PRN MDD 3000mg LAST DOSE GIVEN: DATE: TIME: NEXT DOSE DUE: DATE: TIME: Multivitamins (Multivitamin) 1 Each Tablet 1 Tab PO DAILY LAST DOSE GIVEN: DATE: TIME: NEXT DOSE DUE: DATE: TIME: Systane Ultra 0.4-0.3% Eye Drp (Propylene Glycol/Peg 400) 10 Ml Drops 1 Ml OP BID LAST DOSE GIVEN: DATE: TIME: NEXT DOSE DUE: DATE: TIME: Aspir 81 (Aspirin) 81 Mg Tablet.dr 81 Mg PO DAILY LAST DOSE GIVEN: DATE: TIME: NEXT DOSE DUE: DATE: TIME: Metoprolol Tartrate 50 Mg Tablet 50 Mg PO BID LAST DOSE GIVEN: DATE: TIME: NEXT DOSE DUE: DATE: TIME: Gabapentin 300 Mg Capsule 300 Mg PO HS LAST DOSE GIVEN: DATE: TIME: NEXT DOSE DUE: DATE: TIME: Cardizem Cd (Diltiazem Hcl) 120 Mg Cap.er.24h 120 Mg PO DAILY LAST DOSE GIVEN: DATE: TIME: NEXT DOSE DUE: DATE: TIME: Activity: as tolerated Diet: Regular Follow-up Plan Dr. Ovalle to manage pt while on Hospice, in conjunction w/ Hospice chief medical director. SEBASTIEN OVALLE MD Apr 07, 2017 14:27
== END 2017-04-07 14:45 | disposition hospice, home (50) | DRG 560 ==
LOC: 1 SOUTH 11:02
PROVIDERS: ADMIT Family Medicine; ATTEND Family Medicine
DX: T84.54XA Infection and inflammatory reaction due to internal left knee prosthesis, initial encounter (principal); M86.662 Other chronic osteomyelitis, left tibia and fibula; J96.10 Chronic respiratory failure, unspecified whether with hypoxia or hypercapnia; E44.0 Moderate protein-calorie malnutrition; I48.2 Chronic atrial fibrillation; L03.116 Cellulitis of left lower limb; E66.01 Morbid (severe) obesity due to excess calories; I11.0 Hypertensive heart disease with heart failure; I50.32 Chronic diastolic (congestive) heart failure; Z68.41 Body mass index [BMI] 40.0-44.9, adult; M86.8X6 Other osteomyelitis, lower leg; G47.33 Obstructive sleep apnea (adult) (pediatric); I89.0 Lymphedema, not elsewhere classified; J44.9 Chronic obstructive pulmonary disease, unspecified; M19.90 Unspecified osteoarthritis, unspecified site; M81.0 Age-related osteoporosis without current pathological fracture; Z96.653 Presence of artificial knee joint, bilateral; F32.9 Major depressive disorder, single episode, unspecified; G47.00 Insomnia, unspecified; G89.29 Other chronic pain; Z74.09 Other reduced mobility; M35.3 Polymyalgia rheumatica; S81.802A Unspecified open wound, left lower leg, initial encounter; Z88.8 Allergy status to other drugs, medicaments and biological substances; Z91.040 Latex allergy status; Z79.01 Long term (current) use of anticoagulants; Z79.52 Long term (current) use of systemic steroids; Z82.5 Family history of asthma and other chronic lower respiratory diseases; Z87.891 Personal history of nicotine dependence; X58.XXXA Exposure to other specified factors, initial encounter; Y93.89 Activity, other specified; Y92.89 Other specified places as the place of occurrence of the external cause; Y99.8 Other external cause status
CPT/HCPCS: 36415; 78315; 80053; 80202; 83735; 83880; 85025; 85610; 85651; 87641; 96374; A9503; J2543; J3370; J7040; J7512